=== PATIENT | female | born 1965 | race Caucasian/White ===

== ENCOUNTER 2017-08-12 07:34 | Inpatient (IN) | payer MEDICAID ==
[~2017-08-12] VITALS: Ht 160 cm; Wt 71.1 kg
[~2017-08-12 07:34] MED LIST: FIORICET PO; IBUP800T25 PO
[2017-08-12] MEDS ORDERED: SOD CHLORIDE 0.9% 1,000 ML IV STA (07:46)
[2017-08-12] MEDS ORDERED: HYDROmorphONE 1 MG/ML SYG IV STA (07:46)
[2017-08-12] MEDS ORDERED: ONDANSETRON 4 MG INJ IV STA (07:46)
--- NOTE | 2017-08-12 08:00 | ERD ---
ER Documentation Chief Complaint Chief Complaint generalized abdominal pain, vomitting for 6 days got worse; blood in urine HPI 51-year-old female history of gallstones presents emergency department with epigastric abdominal pain for the past 6 days, also reports dark reji colored urine. This patient was seen at [facility] a few days ago and had a gallbladder ultrasound and was diagnosed with gallstones. After being seen, she still continues to have nausea, vomiting, epigastric pain that is sharp, moderate, severe, nonradiating. She denies any fevers or chills. He was prescribed [place] but states that she is still in pain at this time. ROS All systems reviewed and are negative except as per history of present illness. Medications Home Meds Active Scripts Acetamin/Butalbital/Caffeine* (Fioricet*) [id number] Tab, 1 TAB PO Q6H Y for PAIN, #30 TAB Prov:AKILA DOE MD 08/05/16 Ibuprofen* (Motrin*) 800 Mg Tab, 800 MG PO Q6H Y for PAIN AND OR ELEVATED TEMP, #30 TAB Prov:AKILA DOE MD 08/05/16 Allergies Allergies: Coded Allergies: No Known Allergy (Unverified , 08/05/16) PMhx/Soc History of Surgery: Yes ("thyroid removal 4 years ago") Anesthesia Reaction: No Hx Neurological Disorder: No Hx Respiratory Disorders: No Hx Cardiac Disorders: No Hx Psychiatric Problems: No Hx Miscellaneous Medical Probl: No Hx Alcohol Use: No Hx Substance Use: No Hx Tobacco Use: No Physical Exam Vitals Vital Signs Date Time Temp Pulse Resp B/P Pulse Ox O2 Delivery O2 Flow Rate FiO2 08/12/17 07:35 98.0 81 19 121/81 94 Physical Exam General: Well-developed, well-nourished. The patient appears in no acute distress. HEENT: Head is normocephalic, atraumatic. No scleral icterus. Neck: Supple. Nontender. Lungs: Clear to auscultation. Normal air movement. Heart: Regular rate and rhythm. S1 and S2 are normal. No murmurs, gallops, or rubs. Abdomen: Soft, epigastric and mid abdominal tenderness, nondistended. Bowel sounds are normoactive. neg Blum sign, no McBurney's tenderness. Extremities: No clubbing or cyanosis. Normal pulses. Moving extremities x 4. No weakness. Neurologic: Alert and oriented 3. No focal deficits. Skin: Normal turgor. No rash or lesions. Result Diagram: 08/12/17 0810 08/12/17 0810 Results 24 hrs Laboratory Tests Test 08/12/17 08:00 08/12/17 08:10 Urine Color REJI Urine Clarity CLEAR Urine pH 7.0 Urine Specific [place] 1.018 Urine Ketones 1+mg/dL Urine Nitrite NEGATIVEmg/dL Urine Bilirubin 1+mg/dL Urine Urobilinogen 2+mg/dL Urine Leukocyte Esterase NEGATIVELeu/ul Urine Hemoglobin NEGATIVEmg/dL Urine Glucose NEGATIVEmg/dL Urine Total Protein NEGATIVEmg/dl White Blood Count 4.010^3/ul Red Blood Count 4.2810^6/ul Hemoglobin 12.7g/dl Hematocrit 37.7% Mean Corpuscular Volume 88.1fl Mean Corpuscular Hemoglobin 29.7pg Mean Corpuscular Hemoglobin Concent 33.7g/dl Red Cell Distribution Width 14.4% Platelet Count 35818^3/UL Mean Platelet Volume 11.8fl Neutrophils % 49.0% Lymphocytes % 39.1% Monocytes % 9.3% Eosinophils % 1.5% Basophils % 0.8% Nucleated Red Blood Cells % 0.0/100WBC Neutrophils # 2.010^3/ul Lymphocytes # 1.610^3/ul Monocytes # 0.410^3/ul Eosinophils # 0.110^3/ul Basophils # 0.010^3/ul Nucleated Red Blood Cells # 0.010^3/ul Sodium Level 142mmol/L Potassium Level 4.4mmol/L Chloride Level 105mmol/L Carbon Dioxide Level 24mmol/L Anion Gap 17 Blood Urea Nitrogen 14mg/dl Creatinine 0.72mg/dl Glucose Level 111mg/dl Calcium Level 9.7mg/dl Total Bilirubin 2.4mg/dl Direct Bilirubin 2.00mg/dl Indirect Bilirubin 0.4mg/dl Aspartate Amino Transf (AST/SGOT) 534IU/L Alanine Aminotransferase (ALT/SGPT) 627IU/L Alkaline Phosphatase 372IU/L Total Protein 8.6g/dl Albumin 4.1g/dl Globulin 4.50g/dl Albumin/Globulin Ratio 0.91 Lipase 103U/L Serum HCG, Qualitative NEGATIVE Current Medications Medications (Trade) Dose Ordered Sig/Forest Route PRN Reason Start Time Stop Time Status Last Admin Dose Admin Sodium Chloride (NS) 1,000 ml @ 1,000 mls/hr Q1H STAT IV 08/12/17 07:46 08/12/17 08:45 DC 08/12/17 07:57 Hydromorphone HCl (Dilaudid) 0.5 mg ONCE STAT IV 08/12/17 07:46 08/12/17 07:48 DC 08/12/17 07:56 Ondansetron HCl (Zofran Inj) 4 mg ONCE STAT IV 08/12/17 07:46 08/12/17 07:48 DC 08/12/17 07:56 DIAGNOSTIC IMAGING REPORT Patient: MARTHA MUNGUIA : 1965 Age: 51 Sex: F MR #: [id number] DOS: 08/12/17 0749 Ordering MD: LILIAN GATICA PA-C Location: [facility] Room/Bed: PROCEDURE: Right upper quadrant abdominal ultrasound. CLINICAL INDICATION: Right upper quadrant pain. TECHNIQUE: Montoya scale and color doppler ultrasound images of the right upper quadrant. COMPARISON: None FINDINGS: Liver: Size: 17.1 cm Morphology: Normal. Echogenicity: Fatty infiltrated Focal lesions: None. Portal vein: Patent. Hepatic veins: Patent. Biliary System: Gallbladder: Normal. Gallstones: Positive shadowing layering stones. Biliary dilatation: None. CBD diameter: 4.5 mm Pancreas: Pancreatic head: Normal. Pancreatic body/tail: Not visualized. Focal lesion: None. Right Kidney: Size (length): 10.6 cm Echogenicity: Normal. Hydronephrosis: None. Focal lesions: None. Aorta and IVC: Diameter: Normal. Blood flow: Normal. Abdominal cavity: Free fluid: None. Other findings: None. IMPRESSION: 1. Multiple shadowing layering gallstones. 2. Diffuse fatty infiltration of the liver. 3. Otherwise, unremarkable RUQ ultrasound. RPTAT: PP .Mckinley Griffith MD, Date Time Electronically viewed and signed by .Mckinley Griffith MD, on 08/12/2017 08:44 .B/ CC: LILIAN GATICA PA-C Procedures/[facility] ER course: Patient had an IV line established, the patient was given a fluid bolus of normal saline 1 L, with Dilaudid 0.5 mg and Zofran 4 mg intravenously. Labs, urine, ultrasound and CT abdomen pelvis were obtained. Medical decision making: This is a 51-year-old female recently diagnosed with gallstones and outside emergency department, complaining of epigastric abdominal pain with mid abdominal pain for the past 6 days, hematuria with nausea vomiting. She comes in with worsening pain, and has elevated AST ALT with gallstones, elevated bilirubin, elevated alk phos, consistent with choledocholithiasis. She will be admitted to the hospital, with surgical evaluation. Case was presented to my attending physician Dr. Ramirez who will admit the patient. The case was reviewed and discussed with Dr. Ramirez who agrees with the plan of care including labs, treatment, and advanced imaging as appropriate. Departure Diagnosis: Primary Impression: Choledocholithiasis Condition: LILIAN Carrasquillo PA-C Aug 12, 2017 08:00
[2017-08-12 08:19] LABS: ADD UMIC NO; UR ASCORBIC ACID NEGATIVE (NEGATIVE); UR BILIRUBIN (Dip) 1+ mg/dL (NEGATIVE); UR BLOOD (Dip) NEGATIVE (NEGATIVE); UR CLARITY CLEAR (CLEAR); UR COLOR AMBER (YELLOW); UR GLUCOSE (Dip) NEGATIVE (NEGATIVE); UR KETONES (Dip) 1+ mg/dL (NEGATIVE); UR LEUKOCYTE ESTERASE (Dip) NEGATIVE Leu/ul (NEGATIVE); UR NITRITE (Dip) NEGATIVE (NEGATIVE); UR SPECIFIC GRAVITY (Dip) 1.018 (1.003-1.030); UR TOTAL PROTEIN (Dip) NEGATIVE (NEGATIVE); UR UROBILINOGEN (Dip) 2+ mg/dL (NEGATIVE)
[2017-08-12 08:35] LABS: BASOPHILS % 0.8 % (0.0-2.0); EOSINOPHILS # 0.1 10^3/ul (0.0-0.5); EOSINOPHILS % 1.5 % (0.0-7.0); HEMATOCRIT 37.7 % (37.0-47.0); HEMOGLOBIN 12.7 g/dl (12.0-16.0); LYMPHOCYTES # 1.6 10^3/ul (0.8-2.9); LYMPHOCYTES % 39.1 % (15.0-51.0); MEAN CORPUSCULAR HEMOGLOBIN 29.7 pg (29.0-33.0); MEAN CORPUSCULAR HGB CONC 33.7 g/dl (32.0-37.0); MEAN CORPUSCULAR VOLUME 88.1 fl (82.0-101.0); MEAN PLATELET VOLUME 11.8 fl (7.4-10.4); MONOCYTE # 0.4 10^3/ul (0.3-0.9); MONOCYTES % 9.3 % (0.0-11.0); PLATELET COUNT 175 10^3/UL (140-415); RED BLOOD COUNT 4.28 10^6/ul (4.20-5.40); RED CELL DISTRIBUTION WIDTH 14.4 % (11.5-14.5)
--- NOTE | 2017-08-12 08:45 | RADRPT ---
PROCEDURE: Right upper quadrant abdominal ultrasound. CLINICAL INDICATION: Right upper quadrant pain. TECHNIQUE: Montoya scale and color doppler ultrasound images of the right upper quadrant. COMPARISON: None FINDINGS: Liver: Size:17.1 cm Morphology:Normal. Echogenicity:Fatty infiltrated Focal lesions: None. Portal vein: Patent. Hepatic veins:Patent. Biliary System: Gallbladder:Normal. Gallstones:Positive shadowing layering stones. Biliary dilatation:None. CBD diameter: 4.5 mm Pancreas: Pancreatic head:Normal. Pancreatic body/tail:Not visualized. Focal lesion:None. Right Kidney: Size (length): 10.6 cm Echogenicity:Normal. Hydronephrosis:None. Focal lesions:None. Aorta and IVC: Diameter:Normal. Blood flow:Normal. Abdominal cavity: Free fluid:None. Other findings:None. IMPRESSION: 1. Multiple shadowing layering gallstones. 2. Diffuse fatty infiltration of the liver. 3. Otherwise, unremarkable RUQ ultrasound. RPTAT: PP .Mckinley Griffith MD, MD Date Time Electronically viewed and signed by .Mckinley Griffith MD, MD on 08/12/2017 08:44 .B/
[2017-08-12 09:04] LABS: ALBUMIN 4.1 g/dl (3.3-4.9); ALBUMIN/GLOBULIN RATIO 0.91; BILIRUBIN,INDIRECT 0.4 mg/dl (0-1.1); BILIRUBIN,TOTAL 2.4 mg/dl (0.2-1.3); CALCIUM 9.7 mg/dl (8.4-10.2); CREATININE 0.72 mg/dl (0.44-1.00); POTASSIUM 4.4 mmol/L (3.5-5.1); TOTAL PROTEIN 8.6 g/dl (6.1-8.1)
--- NOTE | 2017-08-12 09:20 | QN ---
Documentation Comment My independent concise history is abdominal pain. My pertinent physical exam findings are abdominal pain. The plan is consultation with Dr. Donahue the surgeon on-call and admission to Dr. Barrientos from the panel team to a medical surgical bed. JENNY GOLDSTEIN MD Aug 12, 2017 09:19
[2017-08-12] MEDS ORDERED: ONDANSETRON 4 MG INJ IV PRN (09:30)
[2017-08-12] MEDS ORDERED: ACETAMINOPHEN 325 MG TAB PO PRN ×2 (09:30→11:00)
[2017-08-12] MEDS ORDERED: AMPICILLIN/SULB 3 GM/NS (PMX) 100 ML IVPB ONE (09:30)
[2017-08-12 10:02] VITALS: TEMP 97.9
[2017-08-12 10:15] VITALS: BP 147/82; PULSE 77; RESP 16
[2017-08-12] MEDS ORDERED: hydrALAzine 20 MG INJ IV PRN (11:00)
[2017-08-12] MEDS ORDERED: LORAZEPAM 2 MG INJ IV PRN (11:00)
[2017-08-12] MEDS ORDERED: HYDROCODONE/APAP (5/325) TAB PO PRN (11:00)
[2017-08-12] MEDS ORDERED: DEXTROSE 5%-0.45% NACL 1,000 ML IV SCH (11:00)
[2017-08-12] MEDS ORDERED: NACL 0.9% 3 ML SYG IV SCH (11:00)
[2017-08-12] MEDS ORDERED: HYDR-2086 PO (11:02)
[2017-08-12] MEDS ORDERED: LEVO100T87 PO (11:02)
[2017-08-12] MEDS ORDERED: ONDA4TAB95 PO (11:02)
[2017-08-12] MEDS ORDERED: OMEP20CA16 PO (11:02)
[2017-08-12] MEDS: PIPER-TAZO 3.375 GM IV (PMX) 50 ML IVPB SCH ×2 (11:47→19:23)
[2017-08-12] MEDS: DEXTROSE 5%-0.45% NACL 1,000 ML IV SCH ×2 (11:53→19:12)
--- NOTE | 2017-08-12 12:03 | HP ---
Date/Time of Note Date/Time of Note DATE: 08/12/17 TIME: 11:57 Assessment/Plan VTE Prophylaxis VTE Prophylaxis Intervention: heparin Assessment/Plan Chief Complaint/Hosp Course Patient is a 51-year-old female with abdominal pain, questionable cholecystitis Assessment and plan Abdominal pain -Questionable cholecystitis versus choledocholithiasis -General surgery and GI consulted -MRCP ordered, n.p.o. until after MRCP, clears okay after -Recommendations appreciated -Ultrasound gallbladder noted Nausea vomiting -Controlled as needed Zofran Elevated bilirubin -Questionable choledocholithiasis, unlikely however given ultrasound not showing dilated duct, MRCP pending -GI recommended is appreciated - Elevated AST and ALT -Questionable fatty liver issues -Follow-up with lipid panel, -Questionable statin to start once discharged Obesity -Obtain lipid panel and A1c and thyroid levels Disposition -Follow-up with GI and surgery recommendations -Pending MRCP Problems: HPI/ROS Admit Date/Time Admit Date/Time Aug 12, 2017 at 09:19 Hx of Present Illness Patient is a 51-year-old female with past medical history significant for hypothyroidism secondary to thyroid removal as well as chronic headaches who presents to [facility] for approximately 5 day of continued epigastric and right and left upper quadrant pain. Patient was evaluated in the ED and found on ultrasound of the gallbladder to have multiple gallstones. Patient also had elevated bilirubin on labs in the ED. Patient currently denies any headache but does state occasional nausea as well as persistent abdominal pain. Patient states that she takes all medications on a normal basis. PMH: Hypothyroidism, GERD, headaches PSH: Thyroid removal Social: Denies smoking, drinking, drugs Meds: Levothyroxine 100 mcg daily, omeprazole PMH/Family/Social Social History Smoking Status: Never smoker Exam/Review of Systems Vital Signs Vitals Vital Signs Date Time Temp Pulse Resp B/P Pulse Ox O2 Delivery O2 Flow Rate FiO2 08/12/17 10:02 97.9 66 18 135/70 99 Room Air Exam Exam Physical exam General: Patient is laying in bed and answers questions appropriately Mentation: Patient is alert and oriented 4, Head: Normocephalic atraumatic Eyes: EOMI, pupils reactive to light Neck: Supple, nontender, midline Respiratory: Clear to auscultation bilaterally Cardiovascular: regular rate, no obvious murmurs Gastrointestinal: tender in RUQ/LUQ/epigastric regions, mild, bowel sounds heard. Neurological: Moves all extremities spontaneously Skin: No new skin lesions Labs Result Diagram: 08/12/17 0810 08/12/17 0810 Medications Medications Current Medications Dextrose/Sodium Chloride (D5-1/2ns) 1,000 ml @ 120 mls/hr Q8H20M IV Last administered on 08/12/17 11:53; Admin Dose 120 MLS/HR; Start 08/12/17 at 10: 52 Ondansetron HCl (Zofran Inj) 4 mg Q6H PRN IV NAUSEA AND/OR VOMITING; Start at 11:00 Acetaminophen (Tylenol Tab) 650 mg Q6H PRN PO PAIN LEVEL 1-3 OR FEVER; Start 08/12/17 at 11:00 Acetaminophen/ Hydrocodone Bitart ([place] (5/325)) 1 tab Q6H PRN PO MODERATE PAIN LEVEL 4-6; Start 08/12/17 at 11:00 Morphine Sulfate (morphine) 2 mg Q4H PRN IV SEVERE PAIN LEVEL 7-10; Start at 11:00 Bisacodyl (Dulcolax) 5 mg DAILY PRN PO CONSTIPATION; Start 08/12/17 at 11:00 Heparin Sodium (Porcine) (Heparin (5000 Units/0.5 ml)) 5,000 unit Q8 SC ; Start 08/12/17 at 14:00 Pantoprazole 40 mg 40 mg DAILY@06 IV ; Start 08/13/17 at 06:00 Piperacillin Sod/ Tazobactam Sod (Zosyn 3.375gm/ 50 ml (Pmx)) 50 ml @ 100 mls/ hr Q6 IVPB Last administered on 08/12/17 11:47; Admin Dose 100 MLS/HR; Start 08/12/17 at 12:00 Levothyroxine Sodium (Synthroid) 100 mcg DAILY@06 PO ; Start 08/13/17 at 06:00 Hydralazine HCl (Apresoline) 10 mg Q4H PRN IV sbp>160; Start 08/12/17 at 11:00 Lorazepam (Ativan) 0.5 mg Q6H PRN IV anxiety; Start 08/12/17 at 11:00 ESSIE GATICA Aug 12, 2017 12:03
[2017-08-12 13:02] VITALS: Ht 160 cm; Wt 71.1 kg
[2017-08-12] MEDS ORDERED: HEPARIN 5,000 UNIT/0.5 ML VIAL SC SCH (14:00)
[2017-08-12 14:51] VITALS: BP 131/81; RESP 77
--- NOTE | 2017-08-12 19:02 | CONS ---
Date/Time of Note Date/Time of Note DATE: 08/12/17 TIME: 19:02 Assessment/Plan Assessment/Plan Chief Complaint/Hosp Course 1. Abdominal pain with Cholelithiasis, ? cholecystitis, and ? Choledocholithiasis -pain control -abx -mrcp pending -gi consult -eventual OR for lap meek 2. Transaminitis and Hyperbilirubinemia, 2nd above -as above 3. Fatty liver -diet optimization -exercise -weight loss encouraged 4. BMI 28 -diet optimization -exercise 5. Hypothyroid -replete Thank you very much for consulting me in this patient's care, Problems: Consultation Date/Type/Reason Admit Date/Time Aug 12, 2017 at 09:19 Date of Consultation: Aug 12, 2017 Type of Consultation: G. Surgical Reason for Consultation Abdominal pain Cholelithiasis ?Cholecystitis Transaminitis Hyperbilirubinemia BMI 28 Referring Provider: JENNY GOLDSTEIN MD Hx of Present Illness Shannan Lees is a 51yo female with comorbidities presents to [facility] for approximately 5 day of continued epigastric and right and left upper quadrant pain. Patient was evaluated in the ED and found on ultrasound of the gallbladder to have multiple gallstones. Patient also had elevated bilirubin on labs in the ED. Patient currently denies any headache but does state occasional nausea as well as persistent abdominal pain. No current vomiting or fevers. No visual or neuro changes. No dysuria. No abnormal discharge. Surgical consult is obtained for further evaluation and treatment. 12 point ros negative unless addressed in hpi Past Medical History Hypothyroidism, iatrogenic GERD Headaches BMI 28 Transaminitis Hyperbilirubinemia Past Surgical History Thyroidectomy Family History Significant Family History: no pertinent family hx Social History Alcohol Use: none Smoking Status: Never smoker Drug Use: none Exam/Review of Systems Vital Signs Vitals Vital Signs Date Time Temp Pulse Resp B/P Pulse Ox O2 Delivery O2 Flow Rate FiO2 08/12/17 14:51 98.0 18 77 131/81 99 08/12/17 10:15 Room Air Exam Constitutional: alert, obese, oriented, No distress Psych: nl mood/affect, No anxiety, No confusion Head: atraumatic, normocephalic Eyes: EOMI, PERRL, nl conjunctiva, No icteric ENMT: mucosa pink and moist, nl external ears & nose Neck: non-tender, supple, No jvd Respiratory: normal air movement, No congested cough, No labored breathing Cardiovascular: regular rate and rhythm, No edema Gastrointestinal: soft, tender, No rebound or guarding Musculoskeletal: nl extremities to inspection, No joint tenderness Extremities: normal pulses, No calf tenderness, No cyanosis Neurological: nl mental status, nl speech, nl strength Skin: nl turgor, No diaphoresis, No rash or lesions Lymph: nl lymph nodes Results Result Diagram: 08/12/17 0810 08/12/17 0810 Results 24 hrs Laboratory Tests Test 08/12/17 08:00 08/12/17 08:10 Urine Color DEBI Urine Clarity CLEAR Urine pH 7.0 Urine Specific [place] 1.018 Urine Ketones 1+ H Urine Nitrite NEGATIVE Urine Bilirubin 1+ H Urine Urobilinogen 2+ H Urine Leukocyte Esterase NEGATIVE Urine Hemoglobin NEGATIVE Urine Glucose NEGATIVE Urine Total Protein NEGATIVE White Blood Count 4.0 L Red Blood Count 4.28 Hemoglobin 12.7 Hematocrit 37.7 Mean Corpuscular Volume 88.1 Mean Corpuscular Hemoglobin 29.7 Mean Corpuscular Hemoglobin Concent 33.7 Red Cell Distribution Width 14.4 Platelet Count 175 Mean Platelet Volume 11.8 H Neutrophils % 49.0 Lymphocytes % 39.1 Monocytes % 9.3 Eosinophils % 1.5 Basophils % 0.8 Nucleated Red Blood Cells % 0.0 Neutrophils # 2.0 Lymphocytes # 1.6 Monocytes # 0.4 Eosinophils # 0.1 Basophils # 0.0 Nucleated Red Blood Cells # 0.0 Sodium Level 142 Potassium Level 4.4 Chloride Level 105 Carbon Dioxide Level 24 Anion Gap 17 H Blood Urea Nitrogen 14 Creatinine 0.72 Glucose Level 111 Calcium Level 9.7 Total Bilirubin 2.4 H Direct Bilirubin 2.00 H Indirect Bilirubin 0.4 Aspartate Amino Transf (AST/SGOT) 534 H Alanine Aminotransferase (ALT/SGPT) 627 H Alkaline Phosphatase 372 H Total Protein 8.6 H Albumin 4.1 Globulin 4.50 H Albumin/Globulin Ratio 0.91 Lipase 103 Serum HCG, Qualitative NEGATIVE Medications Medications Current Medications Dextrose/Sodium Chloride (D5-1/2ns) 1,000 ml @ 120 mls/hr Q8H20M IV Last administered on 08/12/17t 11:53; Admin Dose 120 MLS/HR; Start 08/12/17 at 10: 52 Ondansetron HCl (Zofran Inj) 4 mg Q6H PRN IV NAUSEA AND/OR VOMITING; Start at 11:00 Acetaminophen (Tylenol Tab) 650 mg Q6H PRN PO PAIN LEVEL 1-3 OR FEVER; Start 08/12/17 at 11:00 Acetaminophen/ Hydrocodone Bitart ([place] (5/325)) 1 tab Q6H PRN PO MODERATE PAIN LEVEL 4-6; Start 08/12/17 at 11:00 Morphine Sulfate (morphine) 2 mg Q4H PRN IV SEVERE PAIN LEVEL 7-10; Start at 11:00 Bisacodyl (Dulcolax) 5 mg DAILY PRN PO CONSTIPATION; Start 08/12/17 at 11:00 Heparin Sodium (Porcine) (Heparin (5000 Units/0.5 ml)) 5,000 unit Q8 SC Last administered on 08/12/17 14:49; Admin Dose 5,000 UNIT; Start 08/12/17 at 14: 00 Pantoprazole 40 mg 40 mg DAILY@06 IV ; Start 08/13/17 at 06:00 Piperacillin Sod/ Tazobactam Sod (Zosyn 3.375gm/ 50 ml (Pmx)) 50 ml @ 100 mls/ hr Q6 IVPB Last administered on 08/12/17 11:47; Admin Dose 100 MLS/HR; Start 08/12/17 at 12:00 Levothyroxine Sodium (Synthroid) 100 mcg DAILY@06 PO ; Start 08/13/17 at 06:00 Hydralazine HCl (Apresoline) 10 mg Q4H PRN IV sbp>160; Start 08/12/17 at 11:00 Lorazepam (Ativan) 0.5 mg Q6H PRN IV anxiety; Start 08/12/17 at 11:00 Influenza Virus Vaccine (Fluzone) 0.5 ml ONCE ONCE IM* ; Start 08/13/17 at 09: 00; Stop 08/13/17 at 09:01 LAURENT SOUZA MD Aug 12, 2017 19:02
[2017-08-12 20:20] VITALS: BP 111/68; RESP 18
[2017-08-13] MEDS: PIPER-TAZO 3.375 GM IV (PMX) 50 ML IVPB SCH ×4 (00:45→17:05)
[2017-08-13 02:19] VITALS: BP 106/68; RESP 20
[2017-08-13] MEDS: DEXTROSE 5%-0.45% NACL 1,000 ML IV SCH ×3 (03:00→20:12)
[2017-08-13] MEDS: morphine 2 MG INJ IV PRN (04:30)
[2017-08-13 05:00] LABS: EOSINOPHILS # 0.1 10^3/ul (0.0-0.5); EOSINOPHILS % 2.3 % (0.0-7.0); HEMATOCRIT 35.5 % (37.0-47.0); HEMOGLOBIN 11.8 g/dl (12.0-16.0); LYMPHOCYTES # 1.4 10^3/ul (0.8-2.9); LYMPHOCYTES % 46.4 % (15.0-51.0); MEAN CORPUSCULAR HEMOGLOBIN 29.4 pg (29.0-33.0); MEAN CORPUSCULAR HGB CONC 33.2 g/dl (32.0-37.0); MEAN CORPUSCULAR VOLUME 88.3 fl (82.0-101.0); MEAN PLATELET VOLUME 11.6 fl (7.4-10.4); MONOCYTE # 0.3 10^3/ul (0.3-0.9); MONOCYTES % 9.4 % (0.0-11.0); NEUTROPHIL # 1.2 10^3/ul (1.6-7.5); NEUTROPHILS % 39.9 % (39.0-77.0); PLATELET COUNT 168 10^3/UL (140-415); RED BLOOD COUNT 4.02 10^6/ul (4.20-5.40); RED CELL DISTRIBUTION WIDTH 14.6 % (11.5-14.5); WHITE BLOOD COUNT 3.1 10^3/ul (4.8-10.8)
[2017-08-13 05:35] LABS: ALBUMIN 3.6 g/dl (3.3-4.9); ALBUMIN/GLOBULIN RATIO 0.87; BILIRUBIN,DIRECT 0.5 mg/dl (0.00-0.20); BILIRUBIN,INDIRECT 0.7 mg/dl (0-1.1); BILIRUBIN,TOTAL 1.2 mg/dl (0.2-1.3); CALCIUM 9.1 mg/dl (8.4-10.2); CHOL/HDL RATIO 5.6 RATIO; CREATININE 0.86 mg/dl (0.44-1.00); MAGNESIUM 1.9 mg/dl (1.7-2.5); TOTAL PROTEIN 7.7 g/dl (6.1-8.1)
[2017-08-13] MEDS ORDERED: PANTOPRAZOLE 40 MG INJ IV SCH (06:00)
[2017-08-13] MEDS: LEVOTHYROXINE 100 MCG TAB PO SCH (06:25)
[2017-08-13 06:49] LABS: T3 UPTAKE 35.8 % (23.5-40.5)
[2017-08-13 07:02] LABS: THYROID STIMULATING HORMONE 1.06 MIU/L (0.465-4.680)
[2017-08-13 07:28] VITALS: BP 132/77; RESP 18
--- NOTE | 2017-08-13 08:19 | RADRPT ---
PROCEDURE: MRCP. CLINICAL INDICATION: Elevated liver function tests. TECHNIQUE: MRCP was performed. The following sequences were obtained: Three plane gradient echo localizers, coronal gradient echo images, breath hold axial T2-weighted fat saturation images, el nal T2-weighted images, axial 3-D LAVA images, axial T2-weighted breath hold fast spin echo images, and 3-D coronal rotating MIP images of the biliary tree. COMPARISON: Right upper quadrant abdomen ultrasound. FINDINGS: The liver is normal in size. There is no focal hepatic lesion. The spleen is normal in size and homogeneous in signal intensity. Multiple gallstones are present in the gallbladder. There is mild gallbladder wall thickening measur ing 6 mm. There is no surrounding fluid. The bile ducts are not dilated. There is no evidence of common bile duct stone. The pancreatic duct is grossly normal. The kidneys are grossly normal. The abdominal aorta is not dilated. IMPRESSION: 1. Gallstones in the gallbladder and mild gallbladder wall thickening. This may indicate cholecysti tis. Clinical correlation is advised. 2. Normal bile ducts with no common bile duct stone. 3. Otherwise unremarkable study. RPTAT: QQ .Marco Gonzalez MD, Date Time Electronically viewed and signed by .Marco Gonzalez MD, on 08/12/2017 21:29 .R/
[2017-08-13] MEDS ORDERED: INFLUENZA VIRUS VACCINE 0.5 ML (DISPENSING) IM* ONE (09:00)
[2017-08-13] MEDS: ONDANSETRON 4 MG INJ IV PRN ×2 (09:55→17:05)
--- NOTE | 2017-08-13 14:33 | PN ---
Date/Time of Note Date/Time of Note DATE: 08/13/17 TIME: 14:30 Assessment/Plan VTE Prophylaxis VTE Prophylaxis Intervention: ambulation Lines/Catheters IV [facility] Peripheral IV Urinary Cath still in place: No Assessment/Plan Chief Complaint/Hosp Course Patient is a 51-year-old female with abdominal pain, questionable cholecystitis Assessment and plan Abdominal pain -cholecystitis likely -general surgery plans for lap meek ?today Nausea vomiting -Controlled as needed Zofran Elevated bilirubin -MRCP noted -downtrending -GI recommended is appreciated Elevated AST and ALT -Questionable fatty liver issues -lipid panel noted -Questionable statin to start once discharged Obesity -monitor -tsh wnl Disposition -Follow-up with GI and surgery recommendations -Pending lap meek Problems: Exam/Review of Systems Vital Signs Vitals Vital Signs Date Time Temp Pulse Resp B/P Pulse Ox O2 Delivery O2 Flow Rate FiO2 08/13/17 07:28 97.8 83 18 132/77 96 08/12/17 10:15 Room Air Intake and Output 08/12/17 08/12/17 08/13/17 15:00 23:00 07:00 Intake Total 50 ml 650 ml 692 ml Balance 50 ml 650 ml 692 ml Exam Physical exam General: Patient is laying in bed and answers questions appropriately Mentation: Patient is alert and oriented 4, Head: Normocephalic atraumatic Eyes: EOMI, pupils reactive to light Neck: Supple, nontender, midline Respiratory: Clear to auscultation bilaterally Cardiovascular: regular rate, no obvious murmurs Gastrointestinal: mildly tender in RUQ/LUQ/epigastric regions, mild, bowel sounds heard. Neurological: Moves all extremities spontaneously Skin: No new skin lesions Results Result Diagram: 08/13/17 0419 08/13/17 0420 Results 24 hrs Laboratory Tests Test 08/13/17 04:19 08/13/17 04:20 White Blood Count 3.1 #L Red Blood Count 4.02 L Hemoglobin 11.8 L Hematocrit 35.5 L Mean Corpuscular Volume 88.3 Mean Corpuscular Hemoglobin 29.4 Mean Corpuscular Hemoglobin Concent 33.2 Red Cell Distribution Width 14.6 H Platelet Count 168 Mean Platelet Volume 11.6 H Neutrophils % 39.9 Lymphocytes % 46.4 Monocytes % 9.4 Eosinophils % 2.3 Basophils % 1.0 Nucleated Red Blood Cells % 0.0 Neutrophils # 1.2 L Lymphocytes # 1.4 Monocytes # 0.3 Eosinophils # 0.1 Basophils # 0.0 Nucleated Red Blood Cells # 0.0 Sodium Level 144 Potassium Level 4.0 Chloride Level 108 Carbon Dioxide Level 25 Anion Gap 15 Blood Urea Nitrogen 8 Creatinine 0.86 Glucose Level 119 Calcium Level 9.1 Magnesium Level 1.9 Total Bilirubin 1.2 Direct Bilirubin 0.50 #H Indirect Bilirubin 0.7 Aspartate Amino Transf (AST/SGOT) 414 H Alanine Aminotransferase (ALT/SGPT) 622 H Alkaline Phosphatase 348 H Total Protein 7.7 Albumin 3.6 Globulin 4.10 H Albumin/Globulin Ratio 0.87 Triglycerides Level 168 H Cholesterol Level 208 H LDL Cholesterol, Calculated 137 HDL Cholesterol 37 Cholesterol/HDL Ratio 5.6 Thyroid Stimulating Hormone (TSH) 1.060 Free Thyroxine Index 3.69 Thyroxine (T4) 10.3 Triiodothyronine (T3) Uptake 35.8 Medications Medications Current Medications Dextrose/Sodium Chloride (D5-1/2ns) 1,000 ml @ 120 mls/hr Q8H20M IV Last administered on 08/13/17 12:53; Admin Dose 120 MLS/HR; Start 08/12/17 at 10: 52 Ondansetron HCl (Zofran Inj) 4 mg Q6H PRN IV NAUSEA AND/OR VOMITING Last administered on 08/13/17 09:55; Admin Dose 4 MG; Start 08/12/17 at 11:00 Acetaminophen (Tylenol Tab) 650 mg Q6H PRN PO PAIN LEVEL 1-3 OR FEVER; Start 08/12/17 at 11:00 Acetaminophen/ Hydrocodone Bitart ([place] (5/325)) 1 tab Q6H PRN PO MODERATE PAIN LEVEL 4-6; Start 08/12/17 at 11:00 Morphine Sulfate (morphine) 2 mg Q4H PRN IV SEVERE PAIN LEVEL 7-10 Last administered on 08/13/17 04:30; Admin Dose 2 MG; Start 08/12/17 at 11:00 Bisacodyl (Dulcolax) 5 mg DAILY PRN PO CONSTIPATION; Start 08/12/17 at 11:00 Heparin Sodium (Porcine) (Heparin (5000 Units/0.5 ml)) 5,000 unit Q8 SC Last administered on 08/12/17 14:49; Admin Dose 5,000 UNIT; Start 08/12/17 at 14: 00; Status Future Hold Pantoprazole 40 mg 40 mg DAILY@06 IV Last administered on 08/13/17 06:25; Admin Dose 40 MG; Start 08/13/17 at 06:00 Piperacillin Sod/ Tazobactam Sod (Zosyn 3.375gm/ 50 ml (Pmx)) 50 ml @ 100 mls/ hr Q6 IVPB Last administered on 08/13/17 12:53; Admin Dose 100 MLS/HR; Start 08/12/17 at 12:00 Levothyroxine Sodium (Synthroid) 100 mcg DAILY@06 PO Last administered on 08/13 06:25; Admin Dose 100 MCG; Start 08/13/17 at 06:00 Hydralazine HCl (Apresoline) 10 mg Q4H PRN IV sbp>160; Start 08/12/17 at 11:00 Lorazepam (Ativan) 0.5 mg Q6H PRN IV anxiety; Start 08/12/17 at 11:00 ESSIE GATICA Aug 13, 2017 14:33
[2017-08-13 16:33] VITALS: BP 125/69; RESP 18
--- NOTE | 2017-08-13 18:51 | CONS ---
Date/Time of Note Date/Time of Note DATE: 08/13/17 TIME: 18:45 Assessment/Plan Assessment/Plan Chief Complaint/Hosp Course Assessment: Right upper quadrant/epigastric pain Cholelithiasis rule out cholecystitis/abnormal liver function test No evidence of choledocholithiasis by MRCP Rule out acute or chronic hepatitis Hypothyroidism Obesity Plan: HIDA scan Hepatitis serology, ISATU, ASMA, AMA . Problems: Consultation Date/Type/Reason Admit Date/Time Aug 12, 2017 at 09:19 Date of Consultation: Aug 13, 2017 Type of Consultation: GI Reason for Consultation Cholelithiasis Hx of Present Illness 51-year-old female presented to emergency room with complaints of epigastric and right upper quadrant pain. Ultrasonography showed cholelithiasis and abnormal liver function test. An MRI MRCP has been obtained which is negative for choledocholithiasis. The abnormality liver function this is significant and may be consistent with the possibility of hepatitis therefore appropriate workup will be initiated. I will also recommend the patient has a HIDA scan. Further recommendations pending her findings Gastrointestinal: other (See HPI) Past Medical History Medical History: hyperthyroid Past Surgical History Past Surgical Hx: no surgical history Family History Significant Family History: no pertinent family hx Social History Alcohol Use: rarely Smoking Status: Never smoker Drug Use: none Exam/Review of Systems Vital Signs Vitals Vital Signs Date Time Temp Pulse Resp B/P Pulse Ox O2 Delivery O2 Flow Rate FiO2 08/13/17 16:33 99.0 65 18 125/69 96 08/12/17 10:15 Room Air Intake and Output 08/12/17 08/12/17 08/13/17 15:00 23:00 07:00 Intake Total 50 ml 650 ml 692 ml Balance 50 ml 650 ml 692 ml Exam PHYSICAL EXAMINATION: GENERAL: Well developed, well nourished, obese, alert & oriented x 3, in no acute distress SKIN: No lesions, no stigmata chronic liver disease, no evidence of bleeding diathesis LYMPHATIC: No palpable lymphadenopathy. HEAD: Normocephalic, atraumatic, no tenderness. EYES: Pupils equal reactive to light and accommodation, full extraocular movements, sclera clear, non-icteric, no discharge. EARS/NOSE AND THROAT: Ears normal, nose normal, oropharynx normal, oral membranes well hydrated without lesions. NECK: Supple, no masses, thyroid normal, JVP within normal limits, carotids normal without bruits. CHEST: Inspection within normal limits. CARDIOVASCULAR: Heart: Regular rate and rhythm, no murmurs, gallops or rubs. Peripheral pulses present within normal limits, no cyanosis, clubbing or edemas. No pulsatile abdominal mass RESPIRATORY: Lungs clear to auscultation and percussion, no wheezing, no rubs GASTROINTESTINAL AND LIVER: Abdomen: Soft, moderate right upper quadrant and epigastric tenderness, non-distended, no hernias, no masses, no organomegaly, no ascites, no guarding, no rebound tenderness, normoactive bowel sounds. Rectal : Deferred. GENITOURINARY: [Female genitalia within normal limits.] EXTREMITIES: No cyanosis, clubbing or edema. [MUSCULO-SKELETAL: Gait and station within normal limits, range of motion adequate.] [NEUROLOGIC: Cranial nerves II-XII intact, Motor within normal limits, Sensory within normal limits. Reflexes within normal limits. PSYCHIATRIC: Alert & oriented x 3, mood/affect/judgement adequate] Results Result Diagram: 08/13/17 0419 08/13/17 0420 Results 24 hrs Laboratory Tests Test 08/13/17 04:19 08/13/17 04:20 White Blood Count 3.1 #L Red Blood Count 4.02 L Hemoglobin 11.8 L Hematocrit 35.5 L Mean Corpuscular Volume 88.3 Mean Corpuscular Hemoglobin 29.4 Mean Corpuscular Hemoglobin Concent 33.2 Red Cell Distribution Width 14.6 H Platelet Count 168 Mean Platelet Volume 11.6 H Neutrophils % 39.9 Lymphocytes % 46.4 Monocytes % 9.4 Eosinophils % 2.3 Basophils % 1.0 Nucleated Red Blood Cells % 0.0 Neutrophils # 1.2 L Lymphocytes # 1.4 Monocytes # 0.3 Eosinophils # 0.1 Basophils # 0.0 Nucleated Red Blood Cells # 0.0 Sodium Level 144 Potassium Level 4.0 Chloride Level 108 Carbon Dioxide Level 25 Anion Gap 15 Blood Urea Nitrogen 8 Creatinine 0.86 Glucose Level 119 Calcium Level 9.1 Magnesium Level 1.9 Total Bilirubin 1.2 Direct Bilirubin 0.50 #H Indirect Bilirubin 0.7 Aspartate Amino Transf (AST/SGOT) 414 H Alanine Aminotransferase (ALT/SGPT) 622 H Alkaline Phosphatase 348 H Total Protein 7.7 Albumin 3.6 Globulin 4.10 H Albumin/Globulin Ratio 0.87 Triglycerides Level 168 H Cholesterol Level 208 H LDL Cholesterol, Calculated 137 HDL Cholesterol 37 Cholesterol/HDL Ratio 5.6 Thyroid Stimulating Hormone (TSH) 1.060 Free Thyroxine Index 3.69 Thyroxine (T4) 10.3 Triiodothyronine (T3) Uptake 35.8 Medications Medications Current Medications Dextrose/Sodium Chloride (D5-1/2ns) 1,000 ml @ 120 mls/hr Q8H20M IV Last administered on 08/13/17 12:53; Admin Dose 120 MLS/HR; Start 08/12/17 at 10: 52 Ondansetron HCl (Zofran Inj) 4 mg Q6H PRN IV NAUSEA AND/OR VOMITING Last administered on 08/13/17 17:05; Admin Dose 4 MG; Start 08/12/17 at 11:00 Acetaminophen (Tylenol Tab) 650 mg Q6H PRN PO PAIN LEVEL 1-3 OR FEVER; Start 08/12/17 at 11:00 Acetaminophen/ Hydrocodone Bitart ([place] (5/325)) 1 tab Q6H PRN PO MODERATE PAIN LEVEL 4-6; Start 08/12/17 at 11:00 Morphine Sulfate (morphine) 2 mg Q4H PRN IV SEVERE PAIN LEVEL 7-10 Last administered on 08/13/17 04:30; Admin Dose 2 MG; Start 08/12/17 at 11:00 Bisacodyl (Dulcolax) 5 mg DAILY PRN PO CONSTIPATION; Start 08/12/17 at 11:00 Heparin Sodium (Porcine) 5000 unit 5,000 unit Q8 SC Last administered on 14:49; Admin Dose 5,000 UNIT; Start 08/12/17 at 14:00; Status Future Hold Piperacillin Sod/ Tazobactam Sod (Zosyn 3.375gm/ 50 ml (Pmx)) 50 ml @ 100 mls/ hr Q6 IVPB Last administered on 08/13/17 17:05; Admin Dose 100 MLS/HR; Start 08/12/17 at 12:00 Levothyroxine Sodium (Synthroid) 100 mcg DAILY@06 PO Last administered on 08/13 06:25; Admin Dose 100 MCG; Start 08/13/17 at 06:00 Hydralazine HCl (Apresoline) 10 mg Q4H PRN IV sbp>160; Start 08/12/17 at 11:00 Lorazepam (Ativan) 0.5 mg Q6H PRN IV anxiety; Start 08/12/17 at 11:00 Famotidine (Pepcid Iv) 20 mg BID IV ; Start 08/13/17 at 21:00 KRISTI CLARK MD Aug 13, 2017 18:51
[2017-08-13 20:00] VITALS: BP 113/68; RESP 18
[2017-08-13] MEDS: FAMOTIDINE 20 MG INJ IV SCH (21:41)
--- NOTE | 2017-08-13 23:59 | PN ---
Date/Time of Note Date/Time of Note DATE: 08/13/17 TIME: 23:59 Assessment/Plan Lines/Catheters IV Catheter Type (from [facility]): Peripheral IV Degroot in Place (from [facility]): No Assessment/Plan Chief Complaint/Hosp Course 1. Abdominal pain with Cholelithiasis, ? cholecystitis. MRCP noted. -pain control -abx -gi consult appreciated -OR for lap meek Sunday 2. Transaminitis and Hyperbilirubinemia, 2nd above -as above 3. Fatty liver -liver bx -diet optimization -exercise -weight loss encouraged 4. BMI 28 -diet optimization -exercise 5. Hypothyroid -replete Thank you, Problems: Subjective 24 Hr Interval Summary MRCP noted. Pain persists. No f/c. No cp/sob. No cough. No sz/rash/bleeding /bloating/dysuria/abnormal discharge. No rashes. Exam/Review of Systems Vital Signs Vitals Vital Signs Date Time Temp Pulse Resp B/P Pulse Ox O2 Delivery O2 Flow Rate FiO2 08/13/17 20:00 98.5 66 18 113/68 94 08/12/17 10:15 Room Air Intake and Output 08/12/17 08/12/17 08/13/17 15:00 23:00 07:00 Intake Total 50 ml 650 ml 692 ml Balance 50 ml 650 ml 692 ml Exam Free Text/Dictation Constitutional: alert, obese, oriented, No distress Psych: nl mood/affect, No anxiety, No confusion Head: atraumatic, normocephalic Eyes: EOMI, PERRL, nl conjunctiva, No icteric ENMT: mucosa pink and moist, nl external ears & nose Neck: non-tender, supple, No jvd Respiratory: normal air movement, No congested cough, No labored breathing Cardiovascular: regular rate and rhythm, No edema Gastrointestinal: soft, tender, No rebound or guarding Musculoskeletal: nl extremities to inspection, No joint tenderness Extremities: normal pulses, No calf tenderness, No cyanosis Neurological: nl mental status, nl speech, nl strength Skin: nl turgor, No diaphoresis, No rash or lesions Lymph: nl lymph nodes Results Free Text/Dictation MRCP: 1. Gallstones in the gallbladder and mild gallbladder wall thickening. This may indicate cholecystitis. Clinical correlation is advised. 2. Normal bile ducts with no common bile duct stone. 3. Otherwise unremarkable study. Result Diagram: 08/13/17 0419 08/13/17 0420 LAURENT SOUZA MD Aug 13, 2017 23:59
[2017-08-14] MEDS: DEXTROSE 5%-0.45% NACL 1,000 ML IV SCH ×3 (00:15→21:41)
[2017-08-14] MEDS: PIPER-TAZO 3.375 GM IV (PMX) 50 ML IVPB SCH ×4 (00:15→18:56)
[2017-08-14 02:20] VITALS: BP 97/55; RESP 18
[2017-08-14] MEDS: LEVOTHYROXINE 100 MCG TAB PO SCH ×2 (05:04→14:24)
[2017-08-14 05:15] LABS: HAAIG REFLEX REFLEX FILED
[2017-08-14 05:24] LABS: BASOPHILS % 0.8 % (0.0-2.0); EOSINOPHILS # 0.1 10^3/ul (0.0-0.5); EOSINOPHILS % 2.9 % (0.0-7.0); HEMOGLOBIN 11.8 g/dl (12.0-16.0); LYMPHOCYTES # 1.7 10^3/ul (0.8-2.9); LYMPHOCYTES % 43.9 % (15.0-51.0); MEAN CORPUSCULAR HEMOGLOBIN 29.1 pg (29.0-33.0); MEAN CORPUSCULAR HGB CONC 32.8 g/dl (32.0-37.0); MEAN CORPUSCULAR VOLUME 88.7 fl (82.0-101.0); MEAN PLATELET VOLUME 11.6 fl (7.4-10.4); MONOCYTE # 0.5 10^3/ul (0.3-0.9); MONOCYTES % 12.2 % (0.0-11.0); NEUTROPHIL # 1.5 10^3/ul (1.6-7.5); NEUTROPHILS % 39.9 % (39.0-77.0); PLATELET COUNT 175 10^3/UL (140-415); RED BLOOD COUNT 4.06 10^6/ul (4.20-5.40); RED CELL DISTRIBUTION WIDTH 14.6 % (11.5-14.5); WHITE BLOOD COUNT 3.8 10^3/ul (4.8-10.8)
[2017-08-14 05:44] LABS: CALCIUM 9.3 mg/dl (8.4-10.2); CREATININE 0.91 mg/dl (0.44-1.00); MAGNESIUM 1.8 mg/dl (1.7-2.5); PHOSPHORUS 5.1 mg/dl (2.5-4.9); POTASSIUM 3.9 mmol/L (3.5-5.1)
[2017-08-14 07:32] VITALS: BP 125/75; RESP 19
[2017-08-14 08:05] LABS: HEPATITIS B CORE ANTIBODY NEGATIVE (NEGATIVE)
[2017-08-14] MEDS: FAMOTIDINE 20 MG INJ IV SCH ×2 (09:27→21:41)
--- NOTE | 2017-08-14 12:52 | RADRPT ---
PROCEDURE: HIDA scan CLINICAL INDICATION: 51 -year-old patient with abdominal pain. TECHNIQUE: Following the intravenous injection of 8.3 mCi of Tc-99m Mebrofenin, multiple anterior dynamic images of the abdomen along with numerous planar spot images of the abdomen were obtained up to 90 minutes post injection. COMPARISON: No prior HIDA scans. FINDINGS: The liver is promptly visualized, demonstrates homogeneous distribution of radionuclide. There is a visualization of the common bile duct, gallbladder and gastrointestinal activity within n ormal time. IMPRESSION: No evidence to suggest the presence of common bile or cystic ducts obstruction. RPTAT: HH .Jagruti Rock MD, MD Date Time Electronically viewed and signed by .Jagruti Rock MD, MD on 08/14/2017 12:52 .L/
--- NOTE | 2017-08-14 13:18 | PN ---
Date/Time of Note Date/Time of Note DATE: 08/14/17 TIME: 13:13 Assessment/Plan Lines/Catheters IV Catheter Type (from [facility]): Peripheral IV Degroot in Place (from [facility]): No Assessment/Plan Chief Complaint/Hosp Course 1. Abdominal pain with Cholelithiasis, ? cholecystitis. MRCP noted, HIDA negative -pain control -abx -OR for lap meek Sunday 2. Transaminitis and Hyperbilirubinemia, 2nd above; improving; negative liver serology -as above 3. Fatty liver -liver bx -diet optimization -exercise -weight loss encouraged 4. BMI 28 -diet optimization -exercise 5. Hypothyroid -replete 6. Dyslipidemia: -encourage weight loss, diet and exercise optimization -medical management 7. Anemia: no acute bleed noted -monitor -transfuse as needed Thank you. Patient seen and examined in collaboration with Dr. Hamlet Donahue. Problems: Subjective 24 Hr Interval Summary Feels ok. Continues to have abdominal tenderness. Pending surgery tomorrow. Hungry. No fevers, chills, sob, congested cough, cp, palpitations, oro, dizziness , n/v/d/dysuria. Exam/Review of Systems Vital Signs Vitals Vital Signs Date Time Temp Pulse Resp B/P Pulse Ox O2 Delivery O2 Flow Rate FiO2 08/14/17 07:32 98.0 68 19 125/75 98 08/12/17 10:15 Room Air Intake and Output 08/13/17 08/13/17 08/14/17 14:59 22:59 06:59 Intake Total 720 ml 530 ml 1280 ml Balance 720 ml 530 ml 1280 ml Exam Free Text/Dictation Constitutional: alert, obese, oriented, No distress Psych: nl mood/affect, No anxiety, No confusion Head: atraumatic, normocephalic Eyes: EOMI, PERRL, nl conjunctiva, No icteric ENMT: mucosa pink and moist, nl external ears & nose Neck: non-tender, supple, No jvd Respiratory: normal air movement, No congested cough, No labored breathing Cardiovascular: regular rate and rhythm, No edema Gastrointestinal: soft, tender, No rebound or guarding, rotund Musculoskeletal: nl extremities to inspection, No joint tenderness Extremities: normal pulses, No calf tenderness, No cyanosis Neurological: nl mental status, nl speech, nl strength Skin: nl turgor, No diaphoresis, No rash or lesions Results Result Diagram: 08/14/17 0446 08/14/17 0453 LISHA COLLINS NP Aug 14, 2017 13:18
--- NOTE | 2017-08-14 13:45 | PN ---
Date/Time of Note Date/Time of Note DATE: 08/14/17 TIME: 13:44 Assessment/Plan VTE Prophylaxis VTE Prophylaxis Intervention: SCD's Lines/Catheters [facility] Peripheral IV Urinary Cath still in place: No Assessment/Plan Chief Complaint/Hosp Course Patient is a 51-year-old female with abdominal pain, questionable cholecystitis Assessment and plan Abdominal pain -cholecystitis? -general surgery plans for lap meek tomorrow -HIDA, MRCP negative Nausea vomiting -Controlled as needed Zofran Elevated bilirubin -MRCP noted -downtrending Elevated AST and ALT -Questionable fatty liver issues -lipid panel noted -Questionable statin to start once discharged Obesity -monitor -tsh wnl Disposition -Follow-up with surgery recommendations -Pending lap meek Problems: Subjective 24 Hr Interval Summary Free Text/Dictation no acute change, patient to have HIDA today Exam/Review of Systems Vital Signs Vitals Vital Signs Date Time Temp Pulse Resp B/P Pulse Ox O2 Delivery O2 Flow Rate FiO2 08/14/17 07:32 98.0 68 19 125/75 98 08/12/17 10:15 Room Air Intake and Output 08/13/17 08/13/17 08/14/17 14:59 22:59 06:59 Intake Total 720 ml 530 ml 1280 ml Balance 720 ml 530 ml 1280 ml Exam Physical exam General: Patient is laying in bed and answers questions appropriately Mentation: Patient is alert and oriented 4, Head: Normocephalic atraumatic Eyes: EOMI, pupils reactive to light Neck: Supple, nontender, midline Respiratory: Clear to auscultation bilaterally Cardiovascular: regular rate, no obvious murmurs Gastrointestinal: mildly tender in RUQ/LUQ/epigastric regions, mild, bowel sounds heard. Neurological: Moves all extremities spontaneously Skin: No new skin lesions Results Result Diagram: 08/14/17 0446 08/14/17 0453 Results 24 hrs Laboratory Tests Test 08/14/17 04:46 08/14/17 04:53 White Blood Count 3.8 #L Red Blood Count 4.06 L Hemoglobin 11.8 L Hematocrit 36.0 L Mean Corpuscular Volume 88.7 Mean Corpuscular Hemoglobin 29.1 Mean Corpuscular Hemoglobin Concent 32.8 Red Cell Distribution Width 14.6 H Platelet Count 175 Mean Platelet Volume 11.6 H Neutrophils % 39.9 Lymphocytes % 43.9 Monocytes % 12.2 H Eosinophils % 2.9 Basophils % 0.8 Nucleated Red Blood Cells % 0.0 Neutrophils # 1.5 L Lymphocytes # 1.7 Monocytes # 0.5 Eosinophils # 0.1 Basophils # 0.0 Nucleated Red Blood Cells # 0.0 Ferritin 147.0 H Hepatitis B Surface Antigen NEGATIVE Hepatitis B Core Total Antibody NEGATIVE Hepatitis C Antibody NEGATIVE Sodium Level 144 Potassium Level 3.9 Chloride Level 109 Carbon Dioxide Level 27 Anion Gap 12 Blood Urea Nitrogen 7 Creatinine 0.91 Glucose Level 119 Calcium Level 9.3 Phosphorus Level 5.1 H Magnesium Level 1.8 Medications Medications Current Medications Dextrose/Sodium Chloride (D5-1/2ns) 1,000 ml @ 120 mls/hr Q8H20M IV Last administered on 08/14/17 09:32; Admin Dose 120 MLS/HR; Start 08/12/17 at 10: 52 Ondansetron HCl (Zofran Inj) 4 mg Q6H PRN IV NAUSEA AND/OR VOMITING Last administered on 08/13/17 17:05; Admin Dose 4 MG; Start 08/12/17 at 11:00 Acetaminophen (Tylenol Tab) 650 mg Q6H PRN PO PAIN LEVEL 1-3 OR FEVER; Start 08/12/17 at 11:00 Acetaminophen/ Hydrocodone Bitart ([place] (5/325)) 1 tab Q6H PRN PO MODERATE PAIN LEVEL 4-6; Start 08/12/17 at 11:00 Morphine Sulfate (morphine) 2 mg Q4H PRN IV SEVERE PAIN LEVEL 7-10 Last administered on 08/13/17 04:30; Admin Dose 2 MG; Start 08/12/17 at 11:00 Bisacodyl (Dulcolax) 5 mg DAILY PRN PO CONSTIPATION; Start 08/12/17 at 11:00 Heparin Sodium (Porcine) 5000 unit 5,000 unit Q8 SC Last administered on 14:49; Admin Dose 5,000 UNIT; Start 08/12/17 at 14:00; Status Future Hold Piperacillin Sod/ Tazobactam Sod (Zosyn 3.375gm/ 50 ml (Pmx)) 50 ml @ 100 mls/ hr Q6 IVPB Last administered on 08/14/17 12:43; Admin Dose 100 MLS/HR; Start 08/12/17 at 12:00 Levothyroxine Sodium (Synthroid) 100 mcg DAILY@06 PO Last administered on 08/13 06:25; Admin Dose 100 MCG; Start 08/13/17 at 06:00 Hydralazine HCl (Apresoline) 10 mg Q4H PRN IV sbp>160; Start 08/12/17 at 11:00 Lorazepam (Ativan) 0.5 mg Q6H PRN IV anxiety; Start 08/12/17 at 11:00 Famotidine (Pepcid Iv) 20 mg BID IV Last administered on 08/14/17 09:27; Admin Dose 20 MG; Start 08/13/17 at 21:00 ESSIE GATICA Aug 14, 2017 13:45
[2017-08-14 13:54] LABS: INR 0.93; PROTIME 12.5 Sec (12.2-14.2)
[2017-08-14] MEDS: BISACODYL (EC) 5 MG TAB PO PRN (14:24)
--- NOTE | 2017-08-14 14:42 | RADRPT ---
PROCEDURE: Chest x-ray CLINICAL INDICATION: Preop TECHNIQUE: Chest single view COMPARISON: 08/05/2016 FINDINGS: The heart is normal in size. The pulmonary vessels are normal in caliber. The lungs are clear. Th e costophrenic angles are sharp. The visualized bony thorax is unremarkable. IMPRESSION: No acute cardiopulmonary disease. RPTAT: HH .Vinod Jimenez MD, Date Time Electronically viewed and signed by .Vinod Jimenez MD, on 08/14/2017 14:41 .W/
[2017-08-14 14:52] VITALS: BP 120/68; RESP 18
--- NOTE | 2017-08-14 15:02 | PN ---
Date/Time of Note Date/Time of Note DATE: 08/14/17 TIME: 14:44 Assessment/Plan VTE Prophylaxis VTE Prophylaxis Intervention: ambulation Lines/Catheters IV [facility] ([facility] Peripheral IV Urinary Cath still in place: No Assessment/Plan Chief Complaint/Hosp Course Assessment: Right upper quadrant/epigastric pain Cholelithiasis no evidence of cholecystitis Abnormal liver function test No evidence of choledocholithiasis by MRCP Rule out acute or chronic hepatitis Hypothyroidism Obesity Plan: Awaiting ISATU, ASMA, AMA Will repeat LFT's if significant improvement proceed with lap meek, if not defer until liver disease clarified Subjective: Course reviewed with nursing staff Patient interviewed and examined All labs, imaging and other results reviewed The patient reports improvement but not resolution of abdominal pain No fever, chills Will repeat LFT's if significant improvement proceed with lap meek, if not defer until liver disease clarified Exam: General: well developed, well nourished, alert and oriented x3 , in no acute distress Skin: No lesions, no stigmata chronic liver disease, no evidence of bleeding diathesis Lymphatic: No palpable lymphadenopathy HEENT: No lesions Cardiovascular: Heart: Regular rate and rhythm, no murmurs, gallops or rubs. Peripheral pulses present within normal limits, no cyanosis, clubbing or edemas. No pulsatile abdominal mass Respiratory: Lungs clear to auscultation and percussion, no wheezing, no rubs Gastrointestinal and Liver: Abdomen: Soft, mild RUQ/epigastric tenderness, not distended, no hernias, no masses, no organomegaly, no ascites, no guarding, no rebound tenderness, normoactive bowel sounds. Extremities: No cyanosis, clubbing, or edema. [Neurologic: Cranial nerves II-XII intact, motor within normal limits, sensory within normal limits. Reflexes within normal limits.] [Psychiatric: Alert and oriented x3, mood/affect/judgment adequate] Diagnostic Studies: Available data and images were reviewed personally. See reports. Significant results and findings are addressed here or in the assessment and plan. Problems: Exam/Review of Systems Vital Signs Vitals Vital Signs Date Time Temp Pulse Resp B/P Pulse Ox O2 Delivery O2 Flow Rate FiO2 08/14/17 07:32 98.0 68 19 125/75 98 08/12/17 10:15 Room Air Intake and Output 11/08/13/17 08/14/17 15:00 23:00 07:00 Intake Total 720 ml 530 ml 1280 ml Balance 720 ml 530 ml 1280 ml Results Result Diagram: 08/14/17 0446 08/14/17 0453 Results 24 hrs Laboratory Tests Test 08/14/17 04:46 08/14/17 04:53 08/14/17 13:28 White Blood Count 3.8 #L Red Blood Count 4.06 L Hemoglobin 11.8 L Hematocrit 36.0 L Mean Corpuscular Volume 88.7 Mean Corpuscular Hemoglobin 29.1 Mean Corpuscular Hemoglobin Concent 32.8 Red Cell Distribution Width 14.6 H Platelet Count 175 Mean Platelet Volume 11.6 H Neutrophils % 39.9 Lymphocytes % 43.9 Monocytes % 12.2 H Eosinophils % 2.9 Basophils % 0.8 Nucleated Red Blood Cells % 0.0 Neutrophils # 1.5 L Lymphocytes # 1.7 Monocytes # 0.5 Eosinophils # 0.1 Basophils # 0.0 Nucleated Red Blood Cells # 0.0 Ferritin 147.0 H Hepatitis B Surface Antigen NEGATIVE Hepatitis B Core Total Antibody NEGATIVE Hepatitis C Antibody NEGATIVE Sodium Level 144 Potassium Level 3.9 Chloride Level 109 Carbon Dioxide Level 27 Anion Gap 12 Blood Urea Nitrogen 7 Creatinine 0.91 Glucose Level 119 Calcium Level 9.3 Phosphorus Level 5.1 H Magnesium Level 1.8 Prothrombin Time 12.5 Prothrombin Time Ratio 1.0 INR International Normalized Ratio 0.93 Medications Medications Current Medications Dextrose/Sodium Chloride (D5-1/2ns) 1,000 ml @ 120 mls/hr Q8H20M IV Last administered on 08/14/17 09:32; Admin Dose 120 MLS/HR; Start 08/12/17 at 10: 52 Ondansetron HCl (Zofran Inj) 4 mg Q6H PRN IV NAUSEA AND/OR VOMITING Last administered on 08/13/17 17:05; Admin Dose 4 MG; Start 08/12/17 at 11:00 Acetaminophen (Tylenol Tab) 650 mg Q6H PRN PO PAIN LEVEL 1-3 OR FEVER; Start 08/12/17 at 11:00 Acetaminophen/ Hydrocodone Bitart ([place] (5/325)) 1 tab Q6H PRN PO MODERATE PAIN LEVEL 4-6; Start 08/12/17 at 11:00 Morphine Sulfate (morphine) 2 mg Q4H PRN IV SEVERE PAIN LEVEL 7-10 Last administered on 08/13/17 04:30; Admin Dose 2 MG; Start 08/12/17 at 11:00 Bisacodyl (Dulcolax) 5 mg DAILY PRN PO CONSTIPATION Last administered on 14:24; Admin Dose 5 MG; Start 08/12/17 at 11:00 Heparin Sodium (Porcine) 5000 unit 5,000 unit Q8 SC Last administered on 14:49; Admin Dose 5,000 UNIT; Start 08/12/17 at 14:00; Status Future Hold Piperacillin Sod/ Tazobactam Sod (Zosyn 3.375gm/ 50 ml (Pmx)) 50 ml @ 100 mls/ hr Q6 IVPB Last administered on 08/14/17 12:43; Admin Dose 100 MLS/HR; Start 08/12/17 at 12:00 Levothyroxine Sodium (Synthroid) 100 mcg DAILY@06 PO Last administered on 08/14 14:24; Admin Dose 100 MCG; Start 08/13/17 at 06:00 Hydralazine HCl (Apresoline) 10 mg Q4H PRN IV sbp>160; Start 08/12/17 at 11:00 Lorazepam (Ativan) 0.5 mg Q6H PRN IV anxiety; Start 08/12/17 at 11:00 Famotidine (Pepcid Iv) 20 mg BID IV Last administered on 08/14/17 09:27; Admin Dose 20 MG; Start 08/13/17 at 21:00 TAMIKO GONZALEZ NP Aug 14, 2017 14:58
[2017-08-14 20:00] VITALS: BP 104/65; RESP 19
[2017-08-15] VITALS (25 sets, daily range): BP systolic 111–146; BP diastolic 63–87; PULSE 72–94; RESP 14–18
[2017-08-15] MEDS: PIPER-TAZO 3.375 GM IV (PMX) 50 ML IVPB SCH ×5 (00:04→23:24)
[2017-08-15] MEDS: DEXTROSE 5%-0.45% NACL 1,000 ML IV SCH ×3 (05:32→17:18)
[2017-08-15 06:04] LABS: BASOPHILS % 0.9 % (0.0-2.0); EOSINOPHILS # 0.1 10^3/ul (0.0-0.5); EOSINOPHILS % 2.6 % (0.0-7.0); HEMATOCRIT 36.3 % (37.0-47.0); HEMOGLOBIN 11.8 g/dl (12.0-16.0); LYMPHOCYTES # 1.8 10^3/ul (0.8-2.9); LYMPHOCYTES % 39.4 % (15.0-51.0); MEAN CORPUSCULAR HEMOGLOBIN 29.3 pg (29.0-33.0); MEAN CORPUSCULAR HGB CONC 32.5 g/dl (32.0-37.0); MEAN CORPUSCULAR VOLUME 90.1 fl (82.0-101.0); MEAN PLATELET VOLUME 11.6 fl (7.4-10.4); MONOCYTE # 0.5 10^3/ul (0.3-0.9); MONOCYTES % 10.6 % (0.0-11.0); NEUTROPHIL # 2.1 10^3/ul (1.6-7.5); NEUTROPHILS % 46.1 % (39.0-77.0); PLATELET COUNT 184 10^3/UL (140-415); RED BLOOD COUNT 4.03 10^6/ul (4.20-5.40); RED CELL DISTRIBUTION WIDTH 14.7 % (11.5-14.5); WHITE BLOOD COUNT 4.6 10^3/ul (4.8-10.8)
[2017-08-15 06:38] LABS: CALCIUM 8.8 mg/dl (8.4-10.2); CREATININE 0.88 mg/dl (0.44-1.00); MAGNESIUM 1.9 mg/dl (1.7-2.5); PHOSPHORUS 4.9 mg/dl (2.5-4.9); POTASSIUM 3.9 mmol/L (3.5-5.1)
[2017-08-15 06:46] LABS: ALBUMIN 3.6 g/dl (3.3-4.9); BILIRUBIN,INDIRECT 0.5 mg/dl (0-1.1); BILIRUBIN,TOTAL 0.5 mg/dl (0.2-1.3); TOTAL PROTEIN 7.8 g/dl (6.1-8.1)
[2017-08-15] MEDS: FAMOTIDINE 20 MG INJ IV SCH ×2 (08:43→21:15)
[2017-08-15] MEDS ORDERED: MEPERIDINE 25 MG INJ IV PRN (10:30)
[2017-08-15] MEDS ORDERED: HYDROmorphONE (0.2 MG/ML) 10ML SYG IV PRN ×2 (10:30)
[2017-08-15] MEDS ORDERED: ONDANSETRON 4 MG INJ IV PRN (10:30)
[2017-08-15] MEDS ORDERED: LIDOCAINE 1%/EPI 30 ML INJ INJ ONE (10:30)
[2017-08-15] MEDS ORDERED: DIPHENHYDRAMINE 50 MG INJ IV PRN (10:30)
[2017-08-15] MEDS ORDERED: BUPIVACAINE 0.25% (MPF) 30 ML INJ INJ ONE (10:30)
[2017-08-15] MEDS ORDERED: FENTAnyl 50 MCG/ML VIAL IV PRN ×2 (10:30)
[2017-08-15] MEDS ORDERED: METOCLOPRAMIDE 10 MG INJ IV PRN (10:30)
--- NOTE | 2017-08-15 11:51 | PN ---
Date/Time of Note Date/Time of Note DATE: 08/15/17 TIME: 11:50 Assessment/Plan Lines/Catheters IV Catheter Type (from [facility]): Peripheral IV Degroot in Place (from [facility]): No Assessment/Plan Chief Complaint/Hosp Course 1. Abdominal pain with Cholelithiasis, ? cholecystitis. MRCP noted. -pain control -abx -gi consult appreciated -OR for lap meek today 2. Transaminitis and Hyperbilirubinemia, 2nd above -as above 3. Fatty liver -liver bx -diet optimization -exercise -weight loss encouraged 4. BMI 28 -diet optimization -exercise 5. Hypothyroid -replete Thank you, Problems: Subjective 24 Hr Interval Summary Pain persists. No f/c. No cp/sob. No cough. No sz/rash/bleeding/bloating/ dysuria/abnormal discharge. No rashes. Exam/Review of Systems Vital Signs Vitals Vital Signs Date Time Temp Pulse Resp B/P Pulse Ox O2 Delivery O2 Flow Rate FiO2 08/15/17 08:05 97.7 67 18 122/70 97 08/12/17 10:15 Room Air Intake and Output 08/14/17 08/14/17 08/15/17 15:00 23:00 07:00 Intake Total 640 ml 1840 ml 1290 ml Output Total 1300 ml 850 ml Balance 640 ml 540 ml 440 ml Exam Free Text/Dictation Constitutional: alert, obese, oriented, No distress Psych: nl mood/affect, No anxiety, No confusion Head: atraumatic, normocephalic Eyes: EOMI, PERRL, nl conjunctiva, No icteric ENMT: mucosa pink and moist, nl external ears & nose Neck: non-tender, supple, No jvd Respiratory: normal air movement, No congested cough, No labored breathing Cardiovascular: regular rate and rhythm, No edema Gastrointestinal: soft, tender, No rebound or guarding Musculoskeletal: nl extremities to inspection, No joint tenderness Extremities: normal pulses, No calf tenderness, No cyanosis Neurological: nl mental status, nl speech, nl strength Skin: nl turgor, No diaphoresis, No rash or lesions Lymph: nl lymph nodes Results Result Diagram: 08/15/17 0433 08/15/17 0432 LAURENT SOUZA MD Aug 15, 2017 11:51
--- NOTE | 2017-08-15 11:51 | OPR ---
Date/Time of Note Date/Time of Note DATE: 08/15/17 TIME: 11:51 Operative Report Free Text/Dictation Preoperative Diagnosis: Symptomatic cholelithiasis and cholecystitis BMI 28 Ultrasound with fatty infiltration Postoperative Diagnosis: Symptomatic cholelithiasis and intrahepatic gallbladder with cholecystitis Abnormal liver color BMI 28 Ultrasound with fatty infiltration Operation(s) Performed: 1. 3 port laparoscopic cholecystectomy 2. Laparoscopic liver wedge resection biopsy 3. [place] anesthetic [place], [id number] 4. Difficult operation, modifier 22 Surgeon: LAURENT SOUZA MD Group Controller: Harini Holder NP Anesthesia: general, local, & regional Anesthesiologist: Vlad Dan MD Estimated Blood Loss: 50 ml's Specimens: Liver Gallbladder Tubes/Drains: 19F bibiana Complications: None Pt Condition Post Procedure: stable Disposition: PACU Indications: 51-year-old female with gallstones and abdominal pain here for cholecystectomy. Risks include but are not limited to bleeding, infection, abscess, seroma, damage to intestines, damage to the liver, damage to biliary tree, hernia formation, chronic pain, biloma, need for reoperations or further surgeries, ME , stroke, PE, DVT, pneumonia, organ failures, or even . Procedure Description: Patient was brought and placed supine on the operating table SCDs were placed, preoperative antibiotics were administered, all pressure points were well-padded , and after induction of anesthesia patient was prepped and draped in usual sterile fashion and timeout was performed. Incision was made in the supraumbilical region, Veress was safely inserted, and after a negative SIP test , abdomen was insufflated to 15mmHg. Veress was removed and 5mm port was safely inserted. Laparoscopy was performed with a 5 mm 30 scope. No injuries were identified. The liver looks somewhat abnormal color. Gallbladder is without evidence of section. 12 mm port is placed in subxiphoid under direct visualization followed by another 5 mm port in the right upper quadrant. All port sites were injected with quarter percent Marcaine with epi and 1% lidocaine prior to any incisions. Patient was placed in reverse Trendelenburg and right side up on gallbladder was retracted superolaterally. The gallbladder was large, infected, and distended. Gallbladder was also intrahepatic making more difficult to dissect. Using electrocautery and blunt dissection I was able to identify the cystic artery and cystic duct. The duct was small and tapered into the gallbladder. Full critical angle view was identified. Both structures were clipped twice proximally and once distally and transected. Endoloop was placed over the cystic duct stump to further reinforce it. The gallbladder was taken off the inside of the liver with electrocautery. Hemostasis was obtained. Gallbladder was placed in an Endo Catch bag and removed through the subxiphoid port site. There was complete hemostasis. Due to the abnormality of the liver decision was made to perform liver wedge resection which was done with electrocautery and scissor with complete hemostasis right after. The specimen was sent to pathology for further evaluation. 19 bibiana drain was placed and secured with 2-0 nylon suture. 12 mm made port site fascia was closed with Endo Close of an 0 Vicryl in a [id number] manner. Ports and CO2 were removed under direct visualization. Next complete hemostasis. Wounds were thoroughly irrigated skin was closed with 4-0 Monocryl in subcuticular fashion. Dermabond was applied. Patient was extubated and transferred to recovery room in stable condition and all counts were correct and the end of the operation 2. Bilateral transversus abdominis plane block was performed by anesthesiologist postoperatively to aid with pain control intra-and postoperatively. LAURENT SOUZA MD Aug 15, 2017 11:51
[2017-08-15] MEDS ORDERED: LIDOCAINE 1%/EPI 30 ML INJ ONE (12:07)
[2017-08-15] MEDS ORDERED: BUPIVACAINE 0.25% (MPF) 30 ML INJ ONE (12:07)
[2017-08-15] MEDS ORDERED: FENTAnyl 50 MCG/ML VIAL ONE ×2 (12:32→14:14)
[2017-08-15] MEDS ORDERED: PROPOFOL 20 ML ONE (12:58)
[2017-08-15] MEDS ORDERED: ROCURONIUM 50 MG INJ ONE (12:58)
[2017-08-15] MEDS ORDERED: ROPIVACAINE 0.5 % 30 ML VIAL ONE (12:58)
[2017-08-15] MEDS ORDERED: LIDOCAINE 2% (SDV) 5 ML INJ ONE (12:58)
[2017-08-15] MEDS ORDERED: SUCCINYLCHOLINE CHLORIDE 100 MG/5 ML SYG IV ONE (12:58)
[2017-08-15] MEDS ORDERED: SUGAMMADEX SODIUM 200 MG/2 ML VIAL IV ONE (13:01)
--- NOTE | 2017-08-15 14:36 | PN ---
Date/Time of Note Date/Time of Note DATE: 08/15/17 TIME: 14:32 Assessment/Plan VTE Prophylaxis VTE Prophylaxis Intervention: ambulation Lines/Catheters IV Catheter Type (from [facility]): Peripheral IV Urinary Cath still in place: No Assessment/Plan Chief Complaint/Hosp Course s: no acute change o: Physical exam General: Patient is laying in bed and answers questions appropriately Mentation: Patient is alert and oriented 4, Head: Normocephalic atraumatic Eyes: EOMI, pupils reactive to light Neck: Supple, nontender, midline Respiratory: Clear to auscultation bilaterally Cardiovascular: regular rate, no obvious murmurs Gastrointestinal: very mildly tender in RUQ/LUQ/epigastric regions, mild, bowel sounds heard. Neurological: Moves all extremities spontaneously Skin: No new skin lesions Patient is a 51-year-old female with abdominal pain, questionable cholecystitis Assessment and plan Abdominal pain -cholecystitis? -general surgery plans for lap meek this afternoon -HIDA, MRCP negative Nausea vomiting -Controlled as needed Zofran Elevated bilirubin -MRCP noted -downtrending Elevated AST and ALT -Questionable fatty liver issues -lipid panel noted -Questionable statin to start once discharged Obesity -monitor -tsh wnl Disposition -Follow-up with surgery recommendations -Pending lap meek Problems: Exam/Review of Systems Vital Signs Vitals Vital Signs Date Time Temp Pulse Resp B/P Pulse Ox O2 Delivery O2 Flow Rate FiO2 08/15/17 08:05 97.7 67 18 122/70 97 08/12/17 10:15 Room Air Intake and Output 08/14/17 08/14/17 08/15/17 15:00 23:00 07:00 Intake Total 640 ml 1840 ml 1290 ml Output Total 1300 ml 850 ml Balance 640 ml 540 ml 440 ml Results Result Diagram: 08/15/17 0433 08/15/17 0432 Results 24 hrs Laboratory Tests Test 08/15/17 04:32 08/15/17 04:33 Sodium Level 143 Potassium Level 3.9 Chloride Level 110 Carbon Dioxide Level 22 Anion Gap 15 Blood Urea Nitrogen 10 Creatinine 0.88 Glucose Level 119 Calcium Level 8.8 Phosphorus Level 4.9 Magnesium Level 1.9 Total Bilirubin 0.5 Direct Bilirubin 0.00 Indirect Bilirubin 0.5 Aspartate Amino Transf (AST/SGOT) 128 H Alanine Aminotransferase (ALT/SGPT) 385 H Alkaline Phosphatase 245 H Total Protein 7.8 Albumin 3.6 White Blood Count 4.6 #L Red Blood Count 4.03 L Hemoglobin 11.8 L Hematocrit 36.3 L Mean Corpuscular Volume 90.1 Mean Corpuscular Hemoglobin 29.3 Mean Corpuscular Hemoglobin Concent 32.5 Red Cell Distribution Width 14.7 H Platelet Count 184 Mean Platelet Volume 11.6 H Neutrophils % 46.1 Lymphocytes % 39.4 Monocytes % 10.6 Eosinophils % 2.6 Basophils % 0.9 Nucleated Red Blood Cells % 0.0 Neutrophils # 2.1 Lymphocytes # 1.8 Monocytes # 0.5 Eosinophils # 0.1 Basophils # 0.0 Nucleated Red Blood Cells # 0.0 Medications Medications Current Medications Dextrose/Sodium Chloride (D5-1/2ns) 1,000 ml @ 120 mls/hr Q8H20M IV Last administered on 08/15/17 07:54; Admin Dose 120 MLS/HR; Start 08/12/17 at 10: 52 Ondansetron HCl (Zofran Inj) 4 mg Q6H PRN IV NAUSEA AND/OR VOMITING Last administered on 08/13/17 17:05; Admin Dose 4 MG; Start 08/12/17 at 11:00 Acetaminophen (Tylenol Tab) 650 mg Q6H PRN PO PAIN LEVEL 1-3 OR FEVER; Start 08/12/17 at 11:00 Acetaminophen/ Hydrocodone Bitart ([place] (5/325)) 1 tab Q6H PRN PO MODERATE PAIN LEVEL 4-6; Start 08/12/17 at 11:00 Morphine Sulfate (morphine) 2 mg Q4H PRN IV SEVERE PAIN LEVEL 7-10 Last administered on 08/13/17 04:30; Admin Dose 2 MG; Start 08/12/17 at 11:00 Bisacodyl (Dulcolax) 5 mg DAILY PRN PO CONSTIPATION Last administered on 14:24; Admin Dose 5 MG; Start 08/12/17 at 11:00 Heparin Sodium (Porcine) 5000 unit 5,000 unit Q8 SC Last administered on 14:49; Admin Dose 5,000 UNIT; Start 08/12/17 at 14:00; Status Future Hold Piperacillin Sod/ Tazobactam Sod (Zosyn 3.375gm/ 50 ml (Pmx)) 50 ml @ 100 mls/ hr Q6 IVPB Last administered on 08/15/17 06:14; Admin Dose 100 MLS/HR; Start 08/12/17 at 12:00 Levothyroxine Sodium (Synthroid) 100 mcg DAILY@06 PO Last administered on 08/14 14:24; Admin Dose 100 MCG; Start 08/13/17 at 06:00 Hydralazine HCl (Apresoline) 10 mg Q4H PRN IV sbp>160; Start 08/12/17 at 11:00 Lorazepam (Ativan) 0.5 mg Q6H PRN IV anxiety; Start 08/12/17 at 11:00 Famotidine (Pepcid Iv) 20 mg BID IV Last administered on 08/15/17 08:43; Admin Dose 20 MG; Start 08/13/17 at 21:00 ESSIE GATICA Aug 15, 2017 14:36
[2017-08-15] MEDS: HYDROmorphONE (0.2 MG/ML) 10ML SYG IV PRN ×2 (15:06→15:12)
[2017-08-15] MEDS: morphine 2 MG INJ IV PRN (17:11)
[2017-08-15] MEDS: HYDROmorphONE 0.5 MG/0.5 ML SYG IV PRN ×2 (17:15→21:15)
[2017-08-15 18:31] LABS: ANA SCREEN POSITIVE (NEGATIVE)
[2017-08-15 19:16] LABS: MITOCHONDRIAL TB POSITIVE (NEGATIVE)
[2017-08-15] MEDS: HYDROCODONE/APAP (5/325) TAB PO PRN (19:28)
[2017-08-15 19:56] LABS: ANA TITER 1:40 titer
[2017-08-15] MEDS: HYDROmorphONE 1 MG/ML SYG IV PRN (23:58)
[2017-08-16] MEDS: DEXTROSE 5%-0.45% NACL 1,000 ML IV SCH ×3 (02:52→21:52)
[2017-08-16] MEDS: morphine 4 MG/ML VIAL IV PRN (03:53)
[2017-08-16 05:22] LABS: BASOPHILS % 0.3 % (0.0-2.0); EOSINOPHILS % 0.3 % (0.0-7.0); HEMATOCRIT 34.7 % (37.0-47.0); HEMOGLOBIN 11.2 g/dl (12.0-16.0); LYMPHOCYTES # 1.7 10^3/ul (0.8-2.9); LYMPHOCYTES % 27.8 % (15.0-51.0); MEAN CORPUSCULAR HEMOGLOBIN 29.3 pg (29.0-33.0); MEAN CORPUSCULAR HGB CONC 32.3 g/dl (32.0-37.0); MEAN CORPUSCULAR VOLUME 90.8 fl (82.0-101.0); MEAN PLATELET VOLUME 11.2 fl (7.4-10.4); MONOCYTE # 0.5 10^3/ul (0.3-0.9); MONOCYTES % 8.3 % (0.0-11.0); NEUTROPHIL # 3.9 10^3/ul (1.6-7.5); PLATELET COUNT 166 10^3/UL (140-415); RED BLOOD COUNT 3.82 10^6/ul (4.20-5.40); RED CELL DISTRIBUTION WIDTH 14.6 % (11.5-14.5); WHITE BLOOD COUNT 6.2 10^3/ul (4.8-10.8)
[2017-08-16 05:39] LABS: CALCIUM 8.6 mg/dl (8.4-10.2); CREATININE 0.76 mg/dl (0.44-1.00); MAGNESIUM 1.8 mg/dl (1.7-2.5); PHOSPHORUS 4.4 mg/dl (2.5-4.9); POTASSIUM 3.6 mmol/L (3.5-5.1)
[2017-08-16] MEDS: LEVOTHYROXINE 100 MCG TAB PO SCH (05:48)
[2017-08-16] MEDS: PIPER-TAZO 3.375 GM IV (PMX) 50 ML IVPB SCH ×3 (05:48→17:31)
[2017-08-16] MEDS: HYDROmorphONE 1 MG/ML SYG IV PRN ×2 (07:52→15:55)
[2017-08-16 07:53] VITALS: BP 129/74; RESP 16
[2017-08-16] MEDS: FAMOTIDINE 20 MG INJ IV SCH ×2 (07:56→21:51)
--- NOTE | 2017-08-16 08:31 | PN ---
Date/Time of Note Date/Time of Note DATE: 08/16/17 TIME: 08:27 Assessment/Plan VTE Prophylaxis VTE Prophylaxis Intervention: SCD's Lines/Catheters IV [facility]from [facility]): Peripheral IV Urinary Cath still in place: No Assessment/Plan Chief Complaint/Hosp Course Chief Complaint/Hosp Course Assessment: Right upper quadrant/epigastric pain Cholelithiasis no evidence of cholecystitis S/p laparoscopic cholecystectomy with liver wedge biopsy 08/15/17 Abnormal liver function test No evidence of choledocholithiasis by MRCP Rule out acute or chronic hepatitis Hypothyroidism Obesity Plan: NOE- positive 1:40 AMA- positve 1:40 Low positive, non-specific- will await results of bx for further recommendations aminotransferases show improvement Pt seen in collaboration with Dr. Mccullough Subjective: Course reviewed with nursing staff Patient interviewed and examined All labs, imaging and other results reviewed Patient is resting in bed, s/p lap cholecystectomy with liver wedge biopsy, pt with nausea and pain, pt utilizing anti-emetic and pain medication, tolerating well. LFTS have improved, noe and ama both low positive, will await liver bx for further recommendations Exam: General: well developed, well nourished, alert and oriented x3 , in no acute distress Skin: No lesions, no stigmata chronic liver disease, no evidence of bleeding diathesis, surgical incisions intact, LEONARD drain Lymphatic: No palpable lymphadenopathy HEENT: No lesions Cardiovascular: Heart: Regular rate and rhythm, no murmurs, gallops or rubs. Peripheral pulses present within normal limits, no cyanosis, clubbing or edemas. No pulsatile abdominal mass Respiratory: Lungs clear to auscultation and percussion, no wheezing, no rubs Gastrointestinal and Liver: Abdomen: Soft, mild RUQ/epigastric tenderness, not distended, no hernias, no masses, no organomegaly, no ascites, normoactive bowel sounds. Diagnostic Studies: Available data and images were reviewed personally. See reports. Significant results and findings are addressed here or in the assessment and plan. Problems: Exam/Review of Systems Vital Signs Vitals Vital Signs Date Time Temp Pulse Resp B/P Pulse Ox O2 Delivery O2 Flow Rate FiO2 08/16/17 07:59 Nasal Cannula 2.0 08/16/17 07:53 98.3 71 16 129/74 100 Intake and Output 08/15/17 08/15/1717 15:00 23:00 07:00 Intake Total 2280 ml 50 ml 1290 ml Output Total 5 ml 0 ml 50 ml Balance 2275 ml 50 ml 1240 ml Results Result Diagram: 08/16/17 0439 08/16/17 0439 Results 24 hrs Laboratory Tests Test 08/16/17 04:39 White Blood Count 6.2 # Red Blood Count 3.82 L Hemoglobin 11.2 L Hematocrit 34.7 L Mean Corpuscular Volume 90.8 Mean Corpuscular Hemoglobin 29.3 Mean Corpuscular Hemoglobin Concent 32.3 Red Cell Distribution Width 14.6 H Platelet Count 166 Mean Platelet Volume 11.2 H Neutrophils % 63.0 Lymphocytes % 27.8 Monocytes % 8.3 Eosinophils % 0.3 Basophils % 0.3 Nucleated Red Blood Cells % 0.0 Neutrophils # 3.9 Lymphocytes # 1.7 Monocytes # 0.5 Eosinophils # 0.0 Basophils # 0.0 Nucleated Red Blood Cells # 0.0 Sodium Level 141 Potassium Level 3.6 Chloride Level 105 Carbon Dioxide Level 25 Anion Gap 15 Blood Urea Nitrogen 5 L Creatinine 0.76 Glucose Level 126 Calcium Level 8.6 Phosphorus Level 4.4 Magnesium Level 1.8 Medications Medications Current Medications Dextrose/Sodium Chloride (D5-1/2ns) 1,000 ml @ 120 mls/hr Q8H20M IV Last administered on 08/16/17 02:52; Admin Dose 120 MLS/HR; Start 08/12/17 at 10: 52 Ondansetron HCl (Zofran Inj) 4 mg Q6H PRN IV NAUSEA AND/OR VOMITING Last administered on 08/13/17 17:05; Admin Dose 4 MG; Start 08/12/17 at 11:00 Acetaminophen (Tylenol Tab) 650 mg Q6H PRN PO PAIN LEVEL 1-3 OR FEVER; Start 08/12/17 at 11:00 Bisacodyl (Dulcolax) 5 mg DAILY PRN PO CONSTIPATION Last administered on 14:24; Admin Dose 5 MG; Start 08/12/17 at 11:00 Heparin Sodium (Porcine) 5000 unit 5,000 unit Q8 SC Last administered on 14:49; Admin Dose 5,000 UNIT; Start 08/12/17 at 14:00; Status Future Hold Piperacillin Sod/ Tazobactam Sod (Zosyn 3.375gm/ 50 ml (Pmx)) 50 ml @ 100 mls/ hr Q6 IVPB Last administered on 08/16/17 05:48; Admin Dose 100 MLS/HR; Start 08/12/17 at 12:00 Levothyroxine Sodium (Synthroid) 100 mcg DAILY@06 PO Last administered on 08/16 05:48; Admin Dose 100 MCG; Start 08/13/17 at 06:00 Hydralazine HCl (Apresoline) 10 mg Q4H PRN IV sbp>160; Start 08/12/17 at 11:00 Lorazepam (Ativan) 0.5 mg Q6H PRN IV anxiety; Start 08/12/17 at 11:00 Famotidine (Pepcid Iv) 20 mg BID IV Last administered on 08/16/17 07:56; Admin Dose 20 MG; Start 08/13/17 at 21:00 Acetaminophen/ Hydrocodone Bitart ([place] (5/325)) 1 tab Q6H PRN PO PAIN LEVEL 4 -7 Last administered on 08/15/17 19:28; Admin Dose 1 TAB; Start 08/15/17 at 15:00 Hydromorphone HCl (Dilaudid) 1 mg Q4H PRN IV pain 7-10 Last administered on 07:52; Admin Dose 1 MG; Start 08/16/17 at 00:00 Morphine Sulfate (morphine) 4 mg Q4H PRN IV SEVERE PAIN LEVEL 7-10 Last administered on 08/16/17 03:53; Admin Dose 4 MG; Start 08/16/17 at 00:00 ANIYAH CONTRERAS Aug 16, 2017 08:31
--- NOTE | 2017-08-16 11:21 | PN ---
Date/Time of Note Date/Time of Note DATE: 08/16/17 TIME: 11:19 Assessment/Plan VTE Prophylaxis VTE Prophylaxis Intervention: SCD's Lines/Catheters IV Catheter Type (from Nrs): Peripheral IV Urinary Cath still in place: No Assessment/Plan Chief Complaint/Hosp Course s: 08.16: continued abdominal pain, n/v with clears o: Physical exam General: Patient is laying in bed and answers questions appropriately Mentation: Patient is alert and oriented 4, Head: Normocephalic atraumatic Eyes: EOMI, pupils reactive to light Neck: Supple, nontender, midline Respiratory: Clear to auscultation bilaterally Cardiovascular: regular rate, no obvious murmurs Gastrointestinal: mod tender in RUQ/LUQ/epigastric regions, mild, bowel sounds heard. Neurological: Moves all extremities spontaneously Skin: No new skin lesions Patient is a 51-year-old female with abdominal pain, questionable cholecystitis Assessment and plan Abdominal pain -s/p cholecystectomy -mod still, will monitor, ? sequelae of surgery vs other Nausea vomiting -Controlled as needed Zofran Elevated bilirubin -+noe, +ama, -will need GI follow up outpatient, explained to patient Elevated AST and ALT -Questionable fatty liver issues -lipid panel noted -Questionable statin to start once discharged Obesity -monitor -tsh wnl Disposition -keep in house due to inability to tolerate PO Problems: Exam/Review of Systems Vital Signs Vitals Vital Signs Date Time Temp Pulse Resp B/P Pulse Ox O2 Delivery O2 Flow Rate FiO2 08/16/17 07:59 Nasal Cannula 2.0 08/16/17 07:53 98.3 71 16 129/74 100 Intake and Output 08/15/17 08/15/17 08/16/17 15:00 23:00 07:00 Intake Total 2280 ml 50 ml 1290 ml Output Total 5 ml 0 ml 50 ml Balance 2275 ml 50 ml 1240 ml Results Result Diagram: 08/16/17 0439 08/16/17 0439 Results 24 hrs Laboratory Tests Test 08/16/17 04:39 White Blood Count 6.2 # Red Blood Count 3.82 L Hemoglobin 11.2 L Hematocrit 34.7 L Mean Corpuscular Volume 90.8 Mean Corpuscular Hemoglobin 29.3 Mean Corpuscular Hemoglobin Concent 32.3 Red Cell Distribution Width 14.6 H Platelet Count 166 Mean Platelet Volume 11.2 H Neutrophils % 63.0 Lymphocytes % 27.8 Monocytes % 8.3 Eosinophils % 0.3 Basophils % 0.3 Nucleated Red Blood Cells % 0.0 Neutrophils # 3.9 Lymphocytes # 1.7 Monocytes # 0.5 Eosinophils # 0.0 Basophils # 0.0 Nucleated Red Blood Cells # 0.0 Sodium Level 141 Potassium Level 3.6 Chloride Level 105 Carbon Dioxide Level 25 Anion Gap 15 Blood Urea Nitrogen 5 L Creatinine 0.76 Glucose Level 126 Calcium Level 8.6 Phosphorus Level 4.4 Magnesium Level 1.8 Medications Medications Current Medications Dextrose/Sodium Chloride (D5-1/2ns) 1,000 ml @ 120 mls/hr Q8H20M IV Last administered on 08/16/17 02:52; Admin Dose 120 MLS/HR; Start 08/12/17 at 10: 52 Ondansetron HCl (Zofran Inj) 4 mg Q6H PRN IV NAUSEA AND/OR VOMITING Last administered on 08/13/17 17:05; Admin Dose 4 MG; Start 08/12/17 at 11:00 Acetaminophen (Tylenol Tab) 650 mg Q6H PRN PO PAIN LEVEL 1-3 OR FEVER; Start 08/12/17 at 11:00 Bisacodyl (Dulcolax) 5 mg DAILY PRN PO CONSTIPATION Last administered on 14:24; Admin Dose 5 MG; Start 08/12/17 at 11:00 Heparin Sodium (Porcine) 5000 unit 5,000 unit Q8 SC Last administered on 14:49; Admin Dose 5,000 UNIT; Start 08/12/17 at 14:00; Status Future Hold Piperacillin Sod/ Tazobactam Sod (Zosyn 3.375gm/ 50 ml (Pmx)) 50 ml @ 100 mls/ hr Q6 IVPB Last administered on 08/16/17 05:48; Admin Dose 100 MLS/HR; Start 08/12/17 at 12:00 Levothyroxine Sodium (Synthroid) 100 mcg DAILY@06 PO Last administered on 08/16 05:48; Admin Dose 100 MCG; Start 08/13/17 at 06:00 Hydralazine HCl (Apresoline) 10 mg Q4H PRN IV sbp>160; Start 08/12/17 at 11:00 Lorazepam (Ativan) 0.5 mg Q6H PRN IV anxiety; Start 08/12/17 at 11:00 Famotidine (Pepcid Iv) 20 mg BID IV Last administered on 08/16/17 07:56; Admin Dose 20 MG; Start 08/13/17 at 21:00 Acetaminophen/ Hydrocodone Bitart ([place] (5/325)) 1 tab Q6H PRN PO PAIN LEVEL 4 -7 Last administered on 08/15/17 19:28; Admin Dose 1 TAB; Start 08/15/17 at 15:00 Hydromorphone HCl (Dilaudid) 1 mg Q4H PRN IV pain 7-10 Last administered on 07:52; Admin Dose 1 MG; Start 08/16/17 at 00:00 Morphine Sulfate (morphine) 4 mg Q4H PRN IV SEVERE PAIN LEVEL 7-10 Last administered on 08/16/17 03:53; Admin Dose 4 MG; Start 08/16/17 at 00:00 ESSIE GATICA Aug 16, 2017 11:21
[2017-08-16] MEDS: ONDANSETRON 4 MG INJ IV PRN (12:02)
[2017-08-16 14:52] VITALS: BP 127/68; RESP 16
[2017-08-16] MEDS: HYDROCODONE/APAP (5/325) TAB PO PRN (17:45)
[2017-08-16 19:40] VITALS: BP 110/61; RESP 18
--- NOTE | 2017-08-16 23:50 | PN ---
Date/Time of Note Date/Time of Note DATE: 08/16/17 TIME: 23:48 Assessment/Plan Lines/Catheters IV Catheter Type (from Nrsg): Peripheral IV Deg[place] in Place (from Nrs): No Assessment/Plan Chief Complaint/Hosp Course 1. Abdominal pain with Cholelithiasis s/p 3 port lap meek 08/15 -pain control -drain -diet optimization 2. Transaminitis and Hyperbilirubinemia, 2nd above. Improving -await path -as above 3. Fatty liver -liver path pending -diet optimization -exercise -weight loss encouraged 4. BMI 28 -diet optimization -exercise 5. Hypothyroid -replete Thank you, Problems: Subjective 24 Hr Interval Summary s/p 3 port lap meek, liver bx 08/15. Pain at LEONARD site. No f/c. No cp/sob. No cough. No sz/rash/bleeding/bloating/dysuria/abnormal discharge. No rashes. Exam/Review of Systems Vital Signs Vitals Vital Signs Date Time Temp Pulse Resp B/P Pulse Ox O2 Delivery O2 Flow Rate FiO2 08/16/17 20:00 Nasal Cannula 2.0 08/16/17 19:40 98.5 70 18 110/61 99 Intake and Output 08/15/17 08/15/17 08/16/17 15:00 23:00 07:00 Intake Total 2280 ml 50 ml 1290 ml Output Total 5 ml 0 ml 50 ml Balance 2275 ml 50 ml 1240 ml Exam Free Text/Dictation Constitutional: alert, obese, oriented, No distress Psych: nl mood/affect, No anxiety, No confusion Head: atraumatic, normocephalic Eyes: EOMI, PERRL, nl conjunctiva, No icteric ENMT: mucosa pink and moist, nl external ears & nose Neck: non-tender, supple, No jvd Respiratory: normal air movement, No congested cough, No labored breathing Cardiovascular: regular rate and rhythm, No edema Gastrointestinal: soft, tender, No rebound or guarding. Musculoskeletal: nl extremities to inspection, No joint tenderness Extremities: normal pulses, No calf tenderness, No cyanosis Neurological: nl mental status, nl speech, nl strength Skin: nl turgor, No diaphoresis, No rash or lesions Lymph: nl lymph nodes Results Result Diagram: 08/16/1743808/16/17438 LAURENT SOUZA MD Aug 16, 2017 23:50
[2017-08-17] MEDS: PIPER-TAZO 3.375 GM IV (PMX) 50 ML IVPB SCH ×5 (00:22→23:51)
[2017-08-17] MEDS: HYDROCODONE/APAP (5/325) TAB PO PRN ×2 (00:22→09:06)
[2017-08-17] MEDS: HYDROmorphONE 1 MG/ML SYG IV PRN ×2 (04:39→13:07)
[2017-08-17 05:18] LABS: BASOPHILS % 0.5 % (0.0-2.0); EOSINOPHILS # 0.1 10^3/ul (0.0-0.5); EOSINOPHILS % 1.4 % (0.0-7.0); HEMATOCRIT 37.1 % (37.0-47.0); HEMOGLOBIN 11.7 g/dl (12.0-16.0); LYMPHOCYTES # 1.8 10^3/ul (0.8-2.9); LYMPHOCYTES % 30.6 % (15.0-51.0); MEAN CORPUSCULAR HEMOGLOBIN 28.8 pg (29.0-33.0); MEAN CORPUSCULAR HGB CONC 31.5 g/dl (32.0-37.0); MEAN CORPUSCULAR VOLUME 91.4 fl (82.0-101.0); MEAN PLATELET VOLUME 11.3 fl (7.4-10.4); MONOCYTE # 0.5 10^3/ul (0.3-0.9); MONOCYTES % 7.6 % (0.0-11.0); NEUTROPHIL # 3.5 10^3/ul (1.6-7.5); NEUTROPHILS % 59.4 % (39.0-77.0); PLATELET COUNT 177 10^3/UL (140-415); RED BLOOD COUNT 4.06 10^6/ul (4.20-5.40); RED CELL DISTRIBUTION WIDTH 14.6 % (11.5-14.5); WHITE BLOOD COUNT 5.9 10^3/ul (4.8-10.8)
[2017-08-17 05:49] LABS: CALCIUM 9.1 mg/dl (8.4-10.2); CREATININE 0.81 mg/dl (0.44-1.00); MAGNESIUM 1.9 mg/dl (1.7-2.5); PHOSPHORUS 3.4 mg/dl (2.5-4.9); POTASSIUM 3.9 mmol/L (3.5-5.1)
[2017-08-17] MEDS: LEVOTHYROXINE 100 MCG TAB PO SCH (06:40)
[2017-08-17] MEDS: DEXTROSE 5%-0.45% NACL 1,000 ML IV SCH ×3 (06:40→18:09)
[2017-08-17 07:58] VITALS: BP 108/68; RESP 18
[2017-08-17] MEDS: FAMOTIDINE 20 MG INJ IV SCH ×2 (09:05→19:45)
[2017-08-17] MEDS: BISACODYL (EC) 5 MG TAB PO PRN (09:05)
--- NOTE | 2017-08-17 09:51 | PN ---
Date/Time of Note Date/Time of Note DATE: 08/17/17 TIME: 09:48 Assessment/Plan VTE Prophylaxis VTE Prophylaxis Intervention: SCD's Lines/Catheters [facility] Type (from [facility]): Peripheral IV Urinary Cath still in place: No Assessment/Plan Chief Complaint/Hosp Course Chief Complaint/Hosp Course Assessment: Right upper quadrant/epigastric pain Cholelithiasis no evidence of cholecystitis S/p laparoscopic cholecystectomy with liver wedge biopsy 08/15/17 Abnormal liver function test/improved No evidence of choledocholithiasis by MRCP Rule out acute or chronic hepatitis Hypothyroidism Obesity Plan: Pain management Pt to follow up with GI in 2 weeks to review liver bx results Pt seen in collaboration with Dr. Mccullough Subjective: Course reviewed with nursing staff Patient interviewed and examined All labs, imaging and other results reviewed Patient is resting in bed, feeling minimally better, still with pain c/o pain, caitie diet, but states does not like food here. Upon discharge patient to follow up with GI in 2 weeks to review liver bx results. Exam: General: well developed, well nourished, alert and oriented x3 , in no acute distress Skin: No lesions, no stigmata chronic liver disease, no evidence of bleeding diathesis, surgical incisions intact, LEONARD drain Lymphatic: No palpable lymphadenopathy HEENT: No lesions Cardiovascular: Heart: Regular rate and rhythm, no murmurs, gallops or rubs. Peripheral pulses present within normal limits, no cyanosis, clubbing or edemas. No pulsatile abdominal mass Respiratory: Lungs clear to auscultation and percussion, no wheezing, no rubs Gastrointestinal and Liver: Abdomen: Soft, mild RUQ/epigastric tenderness, not distended, no hernias, no masses, no organomegaly, no ascites, normoactive bowel sounds. Diagnostic Studies: Available data and images were reviewed personally. See reports. Significant results and findings are addressed here or in the assessment and plan. Problems: Exam/Review of Systems Vital Signs Vitals Vital Signs Date Time Temp Pulse Resp B/P Pulse Ox O2 Delivery O2 Flow Rate FiO2 08/17/17 07:58 98.4 72 18 108/68 98 08/17/17 07:40 Nasal Cannula 2.0 Intake and Output 08/16/17 08/16/17 08/17/17 15:00 23:00 07:00 Intake Total 580 ml 1750 ml 1370 ml Output Total 1100 ml 1150 ml 1615 ml Balance -520 ml 600 ml -245 ml Results Result Diagram: 08/17/179 08/17/17 0439 Results 24 hrs Laboratory Tests Test 08/17/17 04:39 White Blood Count 5.9 Red Blood Count 4.06 L Hemoglobin 11.7 L Hematocrit 37.1 Mean Corpuscular Volume 91.4 Mean Corpuscular Hemoglobin 28.8 L Mean Corpuscular Hemoglobin Concent 31.5 L Red Cell Distribution Width 14.6 H Platelet Count 177 Mean Platelet Volume 11.3 H Neutrophils % 59.4 Lymphocytes % 30.6 Monocytes % 7.6 Eosinophils % 1.4 Basophils % 0.5 Nucleated Red Blood Cells % 0.0 Neutrophils # 3.5 Lymphocytes # 1.8 Monocytes # 0.5 Eosinophils # 0.1 Basophils # 0.0 Nucleated Red Blood Cells # 0.0 Sodium Level 143 Potassium Level 3.9 Chloride Level 107 Carbon Dioxide Level 28 Anion Gap 12 Blood Urea Nitrogen 3 L Creatinine 0.81 Glucose Level 121 Calcium Level 9.1 Phosphorus Level 3.4 Magnesium Level 1.9 Medications Medications Current Medications Dextrose/Sodium Chloride (D5-1/2ns) 1,000 ml @ 120 mls/hr Q8H20M IV Last administered on 08/17/17 06:40; Admin Dose 120 MLS/HR; Start 08/12/17 at 10: 52 Ondansetron HCl (Zofran Inj) 4 mg Q6H PRN IV NAUSEA AND/OR VOMITING Last administered on 08/16/17 12:02; Admin Dose 4 MG; Start 08/12/17 at 11:00 Acetaminophen (Tylenol Tab) 650 mg Q6H PRN PO PAIN LEVEL 1-3 OR FEVER; Start 08/12/17 at 11:00 Bisacodyl (Dulcolax) 5 mg DAILY PRN PO CONSTIPATION Last administered on 09:05; Admin Dose 5 MG; Start 08/12/17 at 11:00 Heparin Sodium (Porcine) 5000 unit 5,000 unit Q8 SC Last administered on 14:49; Admin Dose 5,000 UNIT; Start 08/12/17 at 14:00; Status Future Hold Piperacillin Sod/ Tazobactam Sod (Zosyn 3.375gm/ 50 ml (Pmx)) 50 ml @ 100 mls/ hr Q6 IVPB Last administered on 08/17/17 06:40; Admin Dose 100 MLS/HR; Start 08/12/17 at 12:00 Levothyroxine Sodium (Synthroid) 100 mcg DAILY@06 PO Last administered on 08/17 06:40; Admin Dose 100 MCG; Start 08/13/17 at 06:00 Hydralazine HCl (Apresoline) 10 mg Q4H PRN IV sbp>160; Start 08/12/17 at 11:00 Lorazepam (Ativan) 0.5 mg Q6H PRN IV anxiety; Start 08/12/17 at 11:00 Famotidine (Pepcid Iv) 20 mg BID IV Last administered on 08/17/17 09:05; Admin Dose 20 MG; Start 08/13/17 at 21:00 Acetaminophen/ Hydrocodone Bitart ([place] (5/325)) 1 tab Q6H PRN PO PAIN LEVEL 4 -7 Last administered on 08/17/17 09:06; Admin Dose 1 TAB; Start 08/15/17 at 15:00 Hydromorphone HCl (Dilaudid) 1 mg Q4H PRN IV pain 7-10 Last administered on 04:39; Admin Dose 1 MG; Start 08/16/17 at 00:00 Morphine Sulfate (morphine) 4 mg Q4H PRN IV SEVERE PAIN LEVEL 7-10 Last administered on 08/16/17 03:53; Admin Dose 4 MG; Start 08/16/17 at 00:00 Simethicone (Mylicon) 160 mg Q6H PRN PO DISTENSION/GAS/BLOATING Last administered on 08/16/17 12:43; Admin Dose 160 MG; Start 08/16/17 at 12:30 ANIYAH CONTRERAS Aug 17, 2017 09:51
--- NOTE | 2017-08-17 11:12 | PN ---
Date/Time of Note Date/Time of Note DATE: 08/17/17 TIME: : Assessment/Plan VTE Prophylaxis VTE Prophylaxis Intervention: ambulation Lines/Catheters [facility] Type (from [facility]): Peripheral IV Urinary Cath still in place: No Assessment/Plan Chief Complaint/Hosp Course s: 08.16: continued abdominal pain, n/v with clears 08.17: drain still in, still abdominal pain, tolerating clears o: Physical exam General: Patient is laying in bed and answers questions appropriately Mentation: Patient is alert and oriented 4, Head: Normocephalic atraumatic Eyes: EOMI, pupils reactive to light Neck: Supple, nontender, midline Respiratory: Clear to auscultation bilaterally Cardiovascular: regular rate, no obvious murmurs Gastrointestinal: mod tender in RUQ/LUQ/epigastric regions, mild, bowel sounds heard. Neurological: Moves all extremities spontaneously Skin: No new skin lesions Patient is a 51-year-old female with abdominal pain, questionable cholecystitis Assessment and plan Abdominal pain -s/p cholecystectomy -mod still, will monitor, ? sequelae of surgery vs other, likely drain playing part of issue -will consider repeat CT if uncontrolled Nausea vomiting -Controlled as needed Zofran Elevated bilirubin -+noe, +ama, -will need GI follow up outpatient, explained to patient Elevated AST and ALT -Questionable fatty liver issues -lipid panel noted -Questionable statin to start once discharged Obesity -monitor -tsh wnl Disposition -keep in house due to inability to tolerate PO and drain -pending surg recs Problems: Exam/Review of Systems Vital Signs Vitals Vital Signs Date Time Temp Pulse Resp B/P Pulse Ox O2 Delivery O2 Flow Rate FiO2 08/17/17 07:58 98.4 72 18 108/68 98 08/17/17 07:40 Nasal Cannula 2.0 Intake and Output 08/16/17 08/16/17 08/17/17 14:59 22:59 06:59 Intake Total 580 ml 1750 ml 1370 ml Output Total 1100 ml 1150 ml 1615 ml Balance -520 ml 600 ml -245 ml Results Result Diagram: 08/17/17 0439 08/17/179 Results 24 hrs Laboratory Tests Test 08/17/17 04:39 White Blood Count 5.9 Red Blood Count 4.06 L Hemoglobin 11.7 L Hematocrit 37.1 Mean Corpuscular Volume 91.4 Mean Corpuscular Hemoglobin 28.8 L Mean Corpuscular Hemoglobin Concent 31.5 L Red Cell Distribution Width 14.6 H Platelet Count 177 Mean Platelet Volume 11.3 H Neutrophils % 59.4 Lymphocytes % 30.6 Monocytes % 7.6 Eosinophils % 1.4 Basophils % 0.5 Nucleated Red Blood Cells % 0.0 Neutrophils # 3.5 Lymphocytes # 1.8 Monocytes # 0.5 Eosinophils # 0.1 Basophils # 0.0 Nucleated Red Blood Cells # 0.0 Sodium Level 143 Potassium Level 3.9 Chloride Level 107 Carbon Dioxide Level 28 Anion Gap 12 Blood Urea Nitrogen 3 L Creatinine 0.81 Glucose Level 121 Calcium Level 9.1 Phosphorus Level 3.4 Magnesium Level 1.9 Medications Medications Current Medications Dextrose/Sodium Chloride (D5-1/2ns) 1,000 ml @ 120 mls/hr Q8H20M IV Last administered on 08/17/17 06:40; Admin Dose 120 MLS/HR; Start 08/12/17 at 10: 52 Ondansetron HCl (Zofran Inj) 4 mg Q6H PRN IV NAUSEA AND/OR VOMITING Last administered on 08/16/17 12:02; Admin Dose 4 MG; Start 08/12/17 at 11:00 Acetaminophen (Tylenol Tab) 650 mg Q6H PRN PO PAIN LEVEL 1-3 OR FEVER; Start 08/12/17 at 11:00 Bisacodyl (Dulcolax) 5 mg DAILY PRN PO CONSTIPATION Last administered on 09:05; Admin Dose 5 MG; Start 08/12/17 at 11:00 Heparin Sodium (Porcine) 5000 unit 5,000 unit Q8 SC Last administered on 14:49; Admin Dose 5,000 UNIT; Start 08/12/17 at 14:00; Status Future Hold Piperacillin Sod/ Tazobactam Sod (Zosyn 3.375gm/ 50 ml (Pmx)) 50 ml @ 100 mls/ hr Q6 IVPB Last administered on 08/17/17 06:40; Admin Dose 100 MLS/HR; Start 08/12/17 at 12:00 Levothyroxine Sodium (Synthroid) 100 mcg DAILY@06 PO Last administered on 08/17 06:40; Admin Dose 100 MCG; Start 08/13/17 at 06:00 Hydralazine HCl (Apresoline) 10 mg Q4H PRN IV sbp>160; Start 08/12/17 at 11:00 Lorazepam (Ativan) 0.5 mg Q6H PRN IV anxiety; Start 08/12/17 at 11:00 Famotidine (Pepcid Iv) 20 mg BID IV Last administered on 08/17/17 09:05; Admin Dose 20 MG; Start 08/13/17 at 21:00 Acetaminophen/ Hydrocodone Bitart ([place] (5/325)) 1 tab Q6H PRN PO PAIN LEVEL 4 -7 Last administered on 08/17/17 09:06; Admin Dose 1 TAB; Start 08/15/17 at 15:00 Hydromorphone HCl (Dilaudid) 1 mg Q4H PRN IV pain 7-10 Last administered on 04:39; Admin Dose 1 MG; Start 08/16/17 at 00:00 Morphine Sulfate (morphine) 4 mg Q4H PRN IV SEVERE PAIN LEVEL 7-10 Last administered on 08/16/17 03:53; Admin Dose 4 MG; Start 08/16/17 at 00:00 Simethicone (Mylicon) 160 mg Q6H PRN PO DISTENSION/GAS/BLOATING Last administered on 08/16/17 12:43; Admin Dose 160 MG; Start 08/16/17 at 12:30 ESSIE GATICA Aug 17, 2017 11:12
[2017-08-17 15:02] VITALS: BP 118/64; RESP 18
[2017-08-17] MEDS: morphine 4 MG/ML VIAL IV PRN (19:45)
[2017-08-17 19:49] VITALS: BP 130/70; PULSE 72; RESP 18
[2017-08-17 23:53] VITALS: BP 117/71; RESP 19
[2017-08-18 02:02] VITALS: BP 122/68; RESP 18
[2017-08-18] MEDS: HYDROmorphONE 1 MG/ML SYG IV PRN (02:10)
[2017-08-18] MEDS: LEVOTHYROXINE 100 MCG TAB PO SCH (05:33)
[2017-08-18] MEDS: PIPER-TAZO 3.375 GM IV (PMX) 50 ML IVPB SCH (05:34)
[2017-08-18] MEDS: DEXTROSE 5%-0.45% NACL 1,000 ML IV SCH (05:36)
[2017-08-18 06:30] LABS: BASOPHILS % 0.8 % (0.0-2.0); EOSINOPHILS # 0.1 10^3/ul (0.0-0.5); EOSINOPHILS % 1.9 % (0.0-7.0); HEMATOCRIT 34.8 % (37.0-47.0); HEMOGLOBIN 11.2 g/dl (12.0-16.0); LYMPHOCYTES # 1.6 10^3/ul (0.8-2.9); LYMPHOCYTES % 33.5 % (15.0-51.0); MEAN CORPUSCULAR HEMOGLOBIN 29.1 pg (29.0-33.0); MEAN CORPUSCULAR HGB CONC 32.2 g/dl (32.0-37.0); MEAN CORPUSCULAR VOLUME 90.4 fl (82.0-101.0); MEAN PLATELET VOLUME 11.8 fl (7.4-10.4); MONOCYTE # 0.4 10^3/ul (0.3-0.9); MONOCYTES % 8.7 % (0.0-11.0); NEUTROPHIL # 2.7 10^3/ul (1.6-7.5); NEUTROPHILS % 54.9 % (39.0-77.0); PLATELET COUNT 179 10^3/UL (140-415); RED BLOOD COUNT 3.85 10^6/ul (4.20-5.40); RED CELL DISTRIBUTION WIDTH 14.6 % (11.5-14.5); WHITE BLOOD COUNT 4.8 10^3/ul (4.8-10.8)
[2017-08-18 07:05] LABS: ALBUMIN 3.6 g/dl (3.3-4.9); ALBUMIN/GLOBULIN RATIO 0.94; BILIRUBIN,INDIRECT 0.3 mg/dl (0-1.1); BILIRUBIN,TOTAL 0.3 mg/dl (0.2-1.3); CALCIUM 9.1 mg/dl (8.4-10.2); CREATININE 0.78 mg/dl (0.44-1.00); POTASSIUM 3.9 mmol/L (3.5-5.1); TOTAL PROTEIN 7.4 g/dl (6.1-8.1)
[2017-08-18 08:19] VITALS: BP 115/72; RESP 20
[2017-08-18] MEDS: FAMOTIDINE 20 MG INJ IV SCH (09:09)
--- NOTE | 2017-08-18 09:14 | PN ---
Date/Time of Note Date/Time of Note DATE: 08/18/17 TIME: 09:09 Assessment/Plan VTE Prophylaxis VTE Prophylaxis Intervention: SCD's Lines/Catheters IV [facility] Type (from [facility] Peripheral IV Urinary Cath still in place: No Assessment/Plan Chief Complaint/Hosp Course Chief Complaint/Hosp Course Assessment: Right upper quadrant/epigastric pain Cholelithiasis no evidence of cholecystitis S/p laparoscopic cholecystectomy with liver wedge biopsy 08/15/17 Abnormal liver function test/poss r/t HICKS No evidence of choledocholithiasis by MRCP Rule out acute or chronic hepatitis Hypothyroidism Obesity Plan: Pain management Liver bx: B-Liver, wedge biopsy: Moderate macrovesicular and microvesicular steatosis. Diet per surgery Pt seen in collaboration with Dr. Mccullough Subjective: Course reviewed with nursing staff Patient interviewed and examined All labs, imaging and other results reviewed Patient states she is feeling much better today, pain is much less. Received liver bx results, transaminitis poss r/t HICKS will discuss results with pathology. Exam: General: well developed, well nourished, alert and oriented x3 , in no acute distress Skin: No lesions, no stigmata chronic liver disease, no evidence of bleeding diathesis, surgical incisions intact, LEONARD drain Lymphatic: No palpable lymphadenopathy HEENT: No lesions Cardiovascular: Heart: Regular rate and rhythm, no murmurs, gallops or rubs. Peripheral pulses present within normal limits, no cyanosis, clubbing or edemas. No pulsatile abdominal mass Respiratory: Lungs clear to auscultation and percussion, no wheezing, no rubs Gastrointestinal and Liver: Abdomen: Soft, mild RUQ/epigastric tenderness, not distended, no hernias, no masses, no organomegaly, no ascites, normoactive bowel sounds. Diagnostic Studies: Available data and images were reviewed personally. See reports. Significant results and findings are addressed here or in the assessment and plan. Problems: Exam/Review of Systems Vital Signs Vitals Vital Signs Date Time Temp Pulse Resp B/P Pulse Ox O2 Delivery O2 Flow Rate FiO2 08/18/17 08:19 98.5 68 20 115/72 95 08/17/17 23:53 Nasal Cannula 08/17/17 07:40 2.0 Intake and Output 08/17/17 08/17/17 08/18/17 15:00 23:00 07:00 Intake Total 820 ml 1450 ml 1650 ml Output Total 20 ml 1600 ml 1050 ml Balance 800 ml -150 ml 600 ml Results Result Diagram: 08/18/17 0454 08/18/17 0454 Results 24 hrs Laboratory Tests Test 08/18/17 04:54 White Blood Count 4.8 Red Blood Count 3.85 L Hemoglobin 11.2 L Hematocrit 34.8 L Mean Corpuscular Volume 90.4 Mean Corpuscular Hemoglobin 29.1 Mean Corpuscular Hemoglobin Concent 32.2 Red Cell Distribution Width 14.6 H Platelet Count 179 Mean Platelet Volume 11.8 H Neutrophils % 54.9 Lymphocytes % 33.5 Monocytes % 8.7 Eosinophils % 1.9 Basophils % 0.8 Nucleated Red Blood Cells % 0.0 Neutrophils # 2.7 Lymphocytes # 1.6 Monocytes # 0.4 Eosinophils # 0.1 Basophils # 0.0 Nucleated Red Blood Cells # 0.0 Sodium Level 141 Potassium Level 3.9 Chloride Level 105 Carbon Dioxide Level 24 Anion Gap 16 Blood Urea Nitrogen 7 Creatinine 0.78 Glucose Level 104 Calcium Level 9.1 Magnesium Level 1.9 Total Bilirubin 0.3 Direct Bilirubin 0.00 Indirect Bilirubin 0.3 Aspartate Amino Transf (AST/SGOT) 69 H Alanine Aminotransferase (ALT/SGPT) 196 H Alkaline Phosphatase 187 H Total Protein 7.4 Albumin 3.6 Globulin 3.80 H Albumin/Globulin Ratio 0.94 Medications Medications Current Medications Dextrose/Sodium Chloride (D5-1/2ns) 1,000 ml @ 120 mls/hr Q8H20M IV Last administered on 08/18/17 05:36; Admin Dose 120 MLS/HR; Start 08/12/17 at 10: 52 Ondansetron HCl (Zofran Inj) 4 mg Q6H PRN IV NAUSEA AND/OR VOMITING Last administered on 08/16/17 12:02; Admin Dose 4 MG; Start 08/12/17 at 11:00 Acetaminophen (Tylenol Tab) 650 mg Q6H PRN PO PAIN LEVEL 1-3 OR FEVER; Start 08/12/17 at 11:00 Bisacodyl (Dulcolax) 5 mg DAILY PRN PO CONSTIPATION Last administered on 09:05; Admin Dose 5 MG; Start 08/12/17 at 11:00 Heparin Sodium (Porcine) 5000 unit 5,000 unit Q8 SC Last administered on 14:49; Admin Dose 5,000 UNIT; Start 08/12/17 at 14:00; Status Future Hold Piperacillin Sod/ Tazobactam Sod (Zosyn 3.375gm/ 50 ml (Pmx)) 50 ml @ 100 mls/ hr Q6 IVPB Last administered on 08/18/17 05:34; Admin Dose 100 MLS/HR; Start 08/12/17 at 12:00 Levothyroxine Sodium (Synthroid) 100 mcg DAILY@06 PO Last administered on 08/18 05:33; Admin Dose 100 MCG; Start 08/13/17 at 06:00 Hydralazine HCl (Apresoline) 10 mg Q4H PRN IV sbp>160; Start 08/12/17 at 11:00 Lorazepam (Ativan) 0.5 mg Q6H PRN IV anxiety; Start 08/12/17 at 11:00 Famotidine (Pepcid Iv) 20 mg BID IV Last administered on 08/17/17 19:45; Admin Dose 20 MG; Start 08/13/17 at 21:00 Acetaminophen/ Hydrocodone Bitart ([place] (5/325)) 1 tab Q6H PRN PO PAIN LEVEL 4 -7 Last administered on 08/17/17 09:06; Admin Dose 1 TAB; Start 08/15/17 at 15:00 Hydromorphone HCl (Dilaudid) 1 mg Q4H PRN IV pain 7-10 Last administered on 02:10; Admin Dose 1 MG; Start 08/16/17 at 00:00 Morphine Sulfate (morphine) 4 mg Q4H PRN IV SEVERE PAIN LEVEL 7-10 Last administered on 08/17/17 19:45; Admin Dose 4 MG; Start 08/16/17 at 00:00 Simethicone (Mylicon) 160 mg Q6H PRN PO DISTENSION/GAS/BLOATING Last administered on 08/16/17 12:43; Admin Dose 160 MG; Start 08/16/17 at 12:30 ANIYAH CONTRERAS Aug 18, 2017 09:14
--- NOTE | 2017-08-18 11:56 | PDOCDIS ---
Discharge Instructions CONDITION Patient Condition: Stable FOLLOW UP/APPOINTMENTS Follow-up Plan 1. Follow up with Dr. Hamlet Donahue, general surgery within 2-3 weeks 2. follow up with color repairer, Dr. Macy Mccullough, within 1 month for biopsy results and follow up for positive anti-mitochondrial marker on blood tests 3. follow up with your primary care provider as soon as possible. ESSIE GATICA Aug 18, 2017 11:56
[2017-08-18] MEDS ORDERED: OXYC5CAP17 PO (12:01)
--- NOTE | 2017-08-18 12:09 | DS ---
Date/Time of Note Date/Time of Note DATE: 08/18/17 TIME: 12:09 Discharge Summary Admission/Discharge Info Admit Date/Time Aug 12, 2017 at 09:19 Discharge Date/Time Patient Condition: Stable Hx of Present Illness Patient is a 51-year-old female with past medical history significant for hypothyroidism secondary to thyroid removal as well as chronic headaches who presents to [facility] for approximately 5 day of continued epigastric and right and left upper quadrant pain. Patient was evaluated in the ED and found on ultrasound of the gallbladder to have multiple gallstones. Patient also had elevated bilirubin on labs in the ED. Patient currently denies any headache but does state occasional nausea as well as persistent abdominal pain. Patient states that she takes all medications on a normal basis. PMH: Hypothyroidism, GERD, headaches PSH: Thyroid removal Social: Denies smoking, drinking, drugs Meds: Levothyroxine 100 mcg daily, omeprazole Hospital Course Patient is a 51-year-old female who presents to [facility] for abdominal pain who presented with cholecystitis and is status post difficult cholecystectomy per general surgery. Patient had a drain placed after the surgery and it was eventually removed by general surgery, patient was also given antibiotics during the stay. Patient will be discharged to follow- up with GI and general surgery for postsurgical care as well as a positive antimitochondrial titer and biopsy results. Patient's pain is controlled and is able to tolerate p.o. Will follow up with primary care provider, GI, general surgery within 2-3 weeks. Discharge diagnoses Abdominal pain Cholecystitis Nausea vomiting Elevated bilirubin Elevated AST and ALT Questionable primary biliary cirrhosis Obesity Home Meds Active Scripts Oxycodone Hcl* (IR) (Oxycodone Hcl*) 5 Mg Capsule, 5 MG PO Q8 Y for PAIN, #21 CAP Prov:ESSIE GATICA 08/18/17 Reported Medications Ondansetron Hcl* (Ondansetron Hcl*) 4 Mg Tablet, 4 MG PO Q6H Y for NAUSEA, TAB 08/12/17 Omeprazole* (Omeprazole*) 20 Mg Capsule.dr 20 MG PO DAILY, #30 CAP 08/12/17 Levothyroxine Sodium* (Levothyroxine Sodium*) 100 Mcg Tablet, 100 MCG PO BEFORE BREAKFAST, #30 TAB 08/12/17 Discontinued Reported Medications Hydrocodone Bit-Acetaminophen* (Vicodin*) 5-300 Tab, 1 TAB PO Q6 Y for PAIN, TAB 08/12/17 Discontinued Scripts Ibuprofen* (Motrin*) 800 Mg Tab, 800 MG PO Q6H Y for PAIN AND OR ELEVATED TEMP, #30 TAB Prov:AKILA DOE MD 08/05/16 Follow-up Plan 1. Follow up with Dr. Hamlet Donahue, general surgery within 2-3 weeks 2. follow up with solar installation foreman, Dr. Macy Mccullough, within 1 month for biopsy results and follow up for positive anti-mitochondrial marker on blood tests 3. follow up with your primary care provider as soon as possible. Primary Care Provider Not On Staff Doctor Time spent on discharge: > 30 minutes Pending Labs Laboratory Tests Test 08/18/17 04:54 White Blood Count 4.810^3/ul (4.8-10.8) Red Blood Count 3.8510^6/ul (4.20-5.40) Hemoglobin 11.2g/dl (12.0-16.0) Hematocrit 34.8% (37.0-47.0) Mean Corpuscular Volume 90.4fl (82.0-101.0) Mean Corpuscular Hemoglobin 29.1pg (29.0-33.0) Mean Corpuscular Hemoglobin Concent 32.2g/dl (32.0-37.0) Red Cell Distribution Width 14.6% (11.5-14.5) Platelet Count 91039^3/UL (140-415) Mean Platelet Volume 11.8fl (7.4-10.4) Neutrophils % 54.9% (39.0-77.0) Lymphocytes % 33.5% (15.0-51.0) Monocytes % 8.7% (0.0-11.0) Eosinophils % 1.9% (0.0-7.0) Basophils % 0.8% (0.0-2.0) Nucleated Red Blood Cells % 0.0/100WBC (0.0-0.0) Neutrophils # 2.710^3/ul (1.6-7.5) Lymphocytes # 1.610^3/ul (0.8-2.9) Monocytes # 0.410^3/ul (0.3-0.9) Eosinophils # 0.110^3/ul (0.0-0.5) Basophils # 0.010^3/ul (0.0-0.1) Nucleated Red Blood Cells # 0.010^3/ul (0.0-0.0) Sodium Level 141mmol/L (135-144) Potassium Level 3.9mmol/L (3.5-5.1) Chloride Level 105mmol/L (97-110) Carbon Dioxide Level 24mmol/L (21-31) Anion Gap 16 (8-16) Blood Urea Nitrogen 7mg/dl (7-20) Creatinine 0.78mg/dl (0.44-1.00) Glucose Level 104mg/dl (70-220) Calcium Level 9.1mg/dl (8.4-10.2) Magnesium Level 1.9mg/dl (1.7-2.5) Total Bilirubin 0.3mg/dl (0.2-1.3) Direct Bilirubin 0.00mg/dl (0.00-0.20) Indirect Bilirubin 0.3mg/dl (0-1.1) Aspartate Amino Transf (AST/SGOT) 69IU/L (15-46) Alanine Aminotransferase (ALT/SGPT) 196IU/L (13-69) Alkaline Phosphatase 187IU/L (42-121) Total Protein 7.4g/dl (6.1-8.1) Albumin 3.6g/dl (3.3-4.9) Globulin 3.80g/dl (1.3-3.2) Albumin/Globulin Ratio 0.94 ESSIE GATICA Aug 18, 2017 12:09
[2017-08-18] MEDS: HYDROCODONE/APAP (5/325) TAB PO PRN (14:54)
[2017-08-18] MEDS: BISACODYL (EC) 5 MG TAB PO PRN (15:22)
[2017-08-18 15:43] VITALS: BP 116/73; RESP 20
--- NOTE | 2017-08-18 18:33 | PN ---
Date/Time of Note Date/Time of Note DATE: 08/17/17 TIME: 18:32 Assessment/Plan Lines/Catheters IV Catheter Type (from Nrsg): Peripheral IV Degroot in Place (from Nrsg): No Assessment/Plan Chief Complaint/Hosp Course 1. Abdominal pain with Cholelithiasis s/p 3 port lap meek 08/15 -pain control -drain dcd -diet optimization -dc planning ok from surgical standpoint 2. Transaminitis and Hyperbilirubinemia, 2nd above. Improving -await path -as above 3. Fatty liver -liver path pending -diet optimization -exercise -weight loss encouraged 4. BMI 28 -diet optimization -exercise 5. Hypothyroid -replete Thank you, Late entry 08/17 Problems: Subjective 24 Hr Interval Summary s/p 3 port lap meek, liver bx 08/15. Pain at LEONARD site. No f/c. No cp/sob. No cough. No sz/rash/bleeding/bloating/dysuria/abnormal discharge. No rashes. Exam/Review of Systems Vital Signs Vitals Vital Signs Date Time Temp Pulse Resp B/P Pulse Ox O2 Delivery O2 Flow Rate FiO2 08/18/17 15:43 97.9 93 20 116/73 96 08/17/17 23:53 Nasal Cannula 08/17/17 07:40 2.0 Intake and Output 08/17/17 08/17/17 08/18/17 15:00 23:00 07:00 Intake Total 820 ml 1450 ml 1650 ml Output Total 20 ml 1600 ml 1050 ml Balance 800 ml -150 ml 600 ml Exam Free Text/Dictation Constitutional: alert, obese, oriented, No distress Psych: nl mood/affect, No anxiety, No confusion Head: atraumatic, normocephalic Eyes: EOMI, PERRL, nl conjunctiva, No icteric ENMT: mucosa pink and moist, nl external ears & nose Neck: non-tender, supple, No jvd Respiratory: normal air movement, No congested cough, No labored breathing Cardiovascular: regular rate and rhythm, No edema Gastrointestinal: soft, tender, No rebound or guarding. Musculoskeletal: nl extremities to inspection, No joint tenderness Extremities: normal pulses, No calf tenderness, No cyanosis Neurological: nl mental status, nl speech, nl strength Skin: nl turgor, No diaphoresis, No rash or lesions Lymph: nl lymph nodes Results Result Diagram: 08/18/17 0454 08/18/17 0454 LAURENT SOUZA MD Aug 18, 2017 18:33
--- NOTE | 2017-08-18 18:34 | PN ---
Date/Time of Note Date/Time of Note DATE: 08/18/17 TIME: 18:33 Assessment/Plan Lines/Catheters IV Catheter Type (from Nrsg): Peripheral IV Degroot in Place (from Nrsg): No Assessment/Plan Chief Complaint/Hosp Course 1. Abdominal pain with Cholelithiasis s/p 3 port lap meek 08/15 -pain control -diet optimization -dc planning ok from surgical standpoint 2. Transaminitis and Hyperbilirubinemia, 2nd above. Improving -await path -as above 3. Fatty liver -liver path pending -diet optimization -exercise -weight loss encouraged 4. BMI 28 -diet optimization -exercise 5. Hypothyroid -replete Thank you, Problems: Subjective 24 Hr Interval Summary s/p 3 port lap meek, liver bx 08/15. Pain improved after drain removed. No f/ c. No cp/sob. No cough. No sz/rash/bleeding/bloating/dysuria/abnormal discharge. No rashes. Exam/Review of Systems Vital Signs Vitals Vital Signs Date Time Temp Pulse Resp B/P Pulse Ox O2 Delivery O2 Flow Rate FiO2 08/18/17 15:43 97.9 93 20 116/73 96 08/17/17 23:53 Nasal Cannula 08/17/17 07:40 2.0 Intake and Output 08/17/17 08/17/17 08/18/17 15:00 23:00 07:00 Intake Total 820 ml 1450 ml 1650 ml Output Total 20 ml 1600 ml 1050 ml Balance 800 ml -150 ml 600 ml Exam Free Text/Dictation Constitutional: alert, obese, oriented, No distress Psych: nl mood/affect, No anxiety, No confusion Head: atraumatic, normocephalic Eyes: EOMI, PERRL, nl conjunctiva, No icteric ENMT: mucosa pink and moist, nl external ears & nose Neck: non-tender, supple, No jvd Respiratory: normal air movement, No congested cough, No labored breathing Cardiovascular: regular rate and rhythm, No edema Gastrointestinal: soft, tender, No rebound or guarding. Musculoskeletal: nl extremities to inspection, No joint tenderness Extremities: normal pulses, No calf tenderness, No cyanosis Neurological: nl mental status, nl speech, nl strength Skin: nl turgor, No diaphoresis, No rash or lesions Lymph: nl lymph nodes Results Result Diagram: 08/18/17 0454 08/18/17 0454 LAURENT SOUZA MD Aug 18, 2017 18:34
== END 2017-08-18 15:40 | disposition home or self-care (01) | DRG 419 ==
LOC: FTE 07:34 → MS1 09:19
PROVIDERS: ADMIT Internal Medicine; ATTEND Internal Medicine
PROC: 0FB04ZX Excision of Liver, Percutaneous Endoscopic Approach, Diagnostic (ICD-10-PCS; 2017-08-15)
PROC: 0FT44ZZ Resection of Gallbladder, Percutaneous Endoscopic Approach (ICD-10-PCS; principal; 2017-08-15 12:00)
DX: K80.10 Calculus of gallbladder with chronic cholecystitis without obstruction (principal); K74.3 Primary biliary cirrhosis; E89.0 Postprocedural hypothyroidism; E66.9 Obesity, unspecified; K76.0 Fatty (change of) liver, not elsewhere classified; K21.9 Gastro-esophageal reflux disease without esophagitis; Z68.28 Body mass index [BMI] 28.0-28.9, adult
CPT/HCPCS: 36415; 71010; 74181; 76705; 78226; 80048; 80053; 80061; 80076; 81003; 82728; 83690; 83735; 84100; 84436; 84443; 84479; 84703; 85025; 85610; 86038; 86255; 86704; 86709; 86803; 87340; 88304; 88307; 88313; 90686; 96374; 96375; A9537; C9113; J0295; J1170; J1644; J2270; J2405; J2543; J2795; J3010; J7030; J7042